=== PATIENT | female | born 1955 | race Caucasian/White ===

== ENCOUNTER 2022-04-14 07:48 | Observation (INO) | payer MEDICARE, OTHER ==
[2022-04-14] MEDS ORDERED: DUONEB 0.5-3 MG/3 ml Neb IH ONE ×2 (08:24→08:27)
[2022-04-14] MEDS ORDERED: solu-MEDROL 125 MG, Sterile H2O 10 ml 2 ML IV ONE ×2 (08:24)
[2022-04-14] MEDS ORDERED: solu-MEDROL ONE (08:38)
[2022-04-14] MEDS ORDERED: Sterile H2O 10 ml IJ ONE (08:38)
[2022-04-14 08:46] LABS: Absolute Neutrophil Ct (ANC) 6.62 x10^3/uL (1.4-6.9); BASOPHIL % 0.2 % (0.0-0.4); Basophil (Absolute #) 0.02 x10^3/uL (0-0.4); Eosinophil % 0.8 % (0.00-5.0); Eosinophil (Absolute #) 0.08 x10^3/uL (0-0.5); Hematocrit 42.7 % (35-47); Hemoglobin 14.2 g/dL (12.0-16.0); IMMATURE GRAN # 0.03 x10^3u/L (0.00-0.03); IMMATURE GRAN % 0.3 % (0.00-0.4); Lymphocyte (Absolute #) 2.04 x10^3/uL (1.0-4.6); Lymphocytes % 20.6 % (24.0-44.0); Mean Cell Volume 92.8 fL (78-100); Mean Corpuscular Hemoglobin 30.9 pg (26-32); Mean Corpuscular Hgb Concent. 33.3 g/dL (32-36); Mean Platelet Volume 10.7 fL (7.5-11.0); Monocyte (Absolute #) 1.12 x10^3/uL (0.0-1.3); Monocytes % 11.3 % (0.0-12.0); Neutrophil % 66.8 % (36.0-66.0); Platelet Count 275 x10^3/uL (150-450); Red Cell Distribution Width 12.8 % (11.5-14.0); White Blood Count 9.9 x10^3/uL (4.0-10.5)
[2022-04-14 09:09] LABS: ALBUMIN 4.2 g/dL (3.5-5.0); ALKALINE PHOSPHATASE 90 U/L (38-126); ANION GAP 12.3 MEQ/L (5-15); BLOOD UREA NITROGEN 8 mg/dL (7-17); CHLORIDE 101 mmol/L (98-107); Calcium 9.2 mg/dL (8.4-10.2); Carbon Dioxide 26 mmol/L (22-30); Creatinine 1 0.55 mg/dL (0.52-1.04); EST GLOMERULAR FILTRATION RATE > 60.0 ML/MIN; Glucose 144 mg/dL (74-106); NT PRO BNP 1940 pg/mL (0-900); Potassium 4.1 mmol/L (3.5-5.1); SGOT/AST 22 U/L (14-36); SGPT/ALT 18 U/L (0-35); SODIUM 135 mmol/L (137-145); Total Protein 7.5 g/dL (6.3-8.2)
--- NOTE | 2022-04-14 09:09 | ERPHSYRPT ---
- History of Present Illness Time Seen by Provider: 04/14/22 09:09 Historian: patient Exam Limitations: no limitations Patient Subjective Stated Complaint: pt here for chest pain under left breast since 0400 this morning, she states hurts worse to take a deep breath, has had a cough for 2 weeks now, no fever today Triage Nursing Assessment: pt alert, resp easy, skin w/d/p. holding chest when coughs, chest clear Physician History: Patient is 66-year-old female presents emergency department for evaluation of chest pain. Chest pain started approximately 4:00 this morning. Pain described as an ache that is located at the left lower aspect of her chest. Pain worse with deep inspiration. Pain improves with rest. Patient denies shortness of breath. Patient states she has been experiencing URI symptoms for approximately 2 weeks. Patient has been coughing. Patient observed that coughing reproduces her pain at her left lower chest. Cough is productive of a clear sputum. No associated fever. No nausea vomiting or diaphoresis. No rash. Patient states he is otherwise healthy. Patient is a known smoker. No formal diagnosis of COPD. On exam patient has noticeable URI symptoms. Nasal congestion and rhi norrhea. Wheezing observed in all lung [place]. No respiratory distress. Family at bedside. She voices no other complaints or concerns at this time. Portions of this note were created with voice recognition technology. There may be grammatical, spelling, punctuation or sound alike errors Timing/Duration: today Activities at Onset: none Quality: aching Location: other (Left lower chest.) Chest Pain Radiation: no radiation Severity of Pain-Max: moderate Severity of Pain-Current: mild Modifying Factors: Improves With: other (Deep breath and coughing worsen chest pain.) Associated Symptoms: cough, hurts to breathe, No shortness of breath, No fever, No syncope, No dizziness, No edema Prior Chest Pain/Cardiac Workup: no prior chest pain Nitro Today/Relief: no nitro taken today Aspirin Treatment Today: no aspirin today Allergies/Adverse Reactions: tetracycline Allergy (Verified 04/14/22 07:54) Home Medications: Escitalopram Oxalate [Lexapro] 10 mg PO DAILY 04/14/22 [History] Lorazepam 1 mg [Ativan 1 MG] 1 mg PO DAILY 04/14/22 [History] Hx Tetanus, Diphtheria Vaccination/Date Given: No Hx Influenza Vaccination/Date Given: No Hx Pneumococcal Vaccination/Date Given: No Immunizations Up to Date: Yes Travel Risk - International Travel Have you traveled outside of the country in past 3 weeks: No - Coronavirus Screening Are you exhibiting any of the following symptoms?: No Close contact with a COVID-19 positive Pt in past 14-21 Days: No - Vaccine Status Have you recieved a Covid-19 vaccination: Yes Skin Piler: Trufa - Vaccination Dates Date of 2cond Vaccination (if applicable): 2020 - Review of Systems Constitutional: No Symptoms, No Fever, No Chills Eyes: No Symptoms Ears, Nose, & Throat: No Symptoms Respiratory: No Symptoms, No Cough, No Dyspnea Cardiac: No Symptoms, No Chest Pain, No Edema, No Syncope Abdominal/Gastrointestinal: No Symptoms, No Abdominal Pain, No Nausea, No Vomiting, No Diarrhea Genitourinary Symptoms: No Symptoms, No Dysuria Musculoskeletal: No Symptoms, No Back Pain, No Neck Pain Skin: No Symptoms, No Rash Neurological: No Symptoms, No Dizziness, No Focal Weakness, No Sensory Changes Psychological: No Symptoms Endocrine: No Symptoms Hematologic/Lymphatic: No Symptoms Immunological/Allergic: No Symptoms All Other Systems: Reviewed and Negative - Past Medical History Psycho-Social History: Anxiety, Depression - Past Surgical History Past Surgical History: Yes Gastrointestinal: Appendectomy - Social History Smoking Status: Current every day smoker Exposure to second hand smoke: Yes Drug Use: marijuana Patient Lives Alone: Yes - Nursing Vital Signs Nursing Vital Signs: Initial Vital Signs Temperature 98.7 F 04/14/22 07:56 Pulse Rate 114 H 04/14/22 07:56 Respiratory Rate 18 04/14/22 07:56 Blood Pressure 139/87 04/14/22 07:56 O2 Sat by Pulse Oximetry 94 L 04/14/22 07:56 Pain Scale Pain Intensity 4 - Physical Exam General Appearance: no apparent distress, alert Eye Exam: PERRL/EOMI, eyes nml inspection, No scleral icterus Ears, Nose, Throat Exam: normal ENT inspection, TMs normal, pharynx normal, moist mucous membranes, other (Nasal congestion/rhinorrhea) Neck Exam: normal inspection, non-tender, supple, full range of motion Respiratory Exam: normal breath sounds, airway intact, wheezing, other (Hypoxia), No respiratory distress Cardiovascular Exam: normal heart sounds, normal peripheral pulses, tachycardia, capillary refill <2 sec, other (Tachycardia), No murmur Gastrointestinal/Abdomen Exam: soft, normal bowel sounds, No tenderness, No mass Back Exam: normal inspection, normal range of motion, No CVA tenderness, No vertebral tenderness Extremity Exam: normal inspection, normal range of motion Neurologic Exam: alert, oriented x 3, cooperative, normal mood/affect, sensation nml, No motor deficits Skin Exam: normal color, warm, dry SpO2 Interpretation: normal SpO2: 90 O2 Delivery: Room Air - Course Nursing assessment & vital signs reviewed: Yes EKG Interpreted by Me: RATE, Sinus Tach, NORMAL AXIS, NORMAL INTERVALS - CT Exams Chest CT Interpretation: Tele-radiologist Report (Negative for pulmonary embolus. Lingula and left lower lobe airspace disease. Pulmonary emphysema) Ordered Tests: Active Orders 24 hr Category Date Time Status Well Drill Operator STAT Care 04/14/22 08:13 Active EKG-ER Only STAT Care 04/14/22 08:13 Active IV Insertion STAT Care 04/14/22 08:13 Active Pulse Oximetry (ED) STAT Care 04/14/22 08:13 Active CHEST WITH CONTRAST [CT] Stat Exams 04/14/22 09:41 Completed BLOOD CULTURE Stat Lab 04/14/22 08:34 Received CBC W DIFF Stat Lab 04/14/22 08:34 Completed CMP Stat Lab 04/14/22 08:30 Completed D-DIMER QUANTITATIVE Stat Lab 04/14/22 08:30 Completed NT PRO BNP Stat Lab 04/14/22 08:30 Completed TROPONIN Q4H Lab 04/14/22 08:15 Completed TROPONIN Q4H Lab 04/14/22 08:34 Received TROPONIN Q4H Lab 04/14/22 16:15 Ordered Respiratory Therapy Assessment DAILY RT 04/14/22 08:45 Active Medication Summary Discontinued Medications Generic Name Dose Route Start Last Admin Trade Name Freq PRN Reason Stop Dose Admin Albuterol/Ipratropium 3 ml 04/14/22 08:24 04/14/22 08:35 Ipratropium/Albuterol Sulfate 3 Ml Ampul.Neb IH 04/14/22 08:25 3 ml STAT ONE Administration Albuterol/Ipratropium Confirm 04/14/22 08:27 Ipratropium/Albuterol Sulfate 3 Ml Ampul.Neb Administered 04/14/22 08:28 Dose 3 ml IH .STK-MED ONE Methylprednisolone Sodium 0 mg 04/14/22 08:24 04/14/22 08:43 Succinate 125 mg/ Sterile IV 04/14/22 08:25 125 mg Water 2 ml STAT ONE Administration Azithromycin 500 mg in 250 mls @ 250 mls/hr 04/14/22 11:53 04/14/22 13:56 Zithromax 500 Mg/ 250 Ml Nacl Premix IV 04/14/22 12:52 250 mls/hr STAT STA 250 mls/hr Administration Ceftriaxone Sodium/Dextrose 2 g in 50 mls @ 100 mls/hr 04/14/22 11:53 04/14/22 13:22 Rocephin 2 Gm-D5w 50ml Bag IV 04/14/22 12:22 100 mls/hr STAT STA 100 mls/hr Administration Ceftriaxone Sodium/Dextrose Confirm 04/14/22 13:22 Rocephin 2 Gm-D5w 50ml Bag Administered 04/14/22 13:23 Dose 2 g in 50 mls @ ud IV .STK-MED ONE Methylprednisolone Sodium Succinate Confirm 04/14/22 08:38 Methylprednis Sod Succ 125 Mg/2 Ml Vial Administered 04/14/22 08:39 Dose 125 mg .ROUTE .STK-MED ONE Sterile Water Confirm 04/14/22 08:38 Water For Injection,Sterile 10 Ml Vial Administered 04/14/22 08:39 Dose 10 ml IJ .STK-MED ONE Lab/Rad Data: Laboratory Result Diagrams 04/14/22 08:34 04/14/22 08:30 Laboratory Results 04/14/22 04/14/22 04/14/22 Range/Units Unknown 08:34 08:30 WBC 9.9 (4.0-10.5) x10^3/uL RBC 4.60 (4.1-5.4) x10^6/uL Hgb 14.2 (12.0-16.0) g/dL Hct 42.7 (35-47) % MCV 92.8 (78-100) fL MCH 30.9 (26-32) pg MCHC 33.3 (32-36) g/dL RDW 12.8 (11.5-14.0) % Plt Count 275 (150-450) x10^3/uL MPV 10.7 (7.5-11.0) fL Gran % 66.8 H (36.0-66.0) % Immature Gran % (Auto) 0.3 (0.00-0.4) % Nucleat RBC Rel Count 0.0 (0.00-0.1) % Eos # (Auto) 0.08 (0-0.5) x10^3/uL Immature Gran # (Auto) 0.03 (0.00-0.03) x10^3u/L Absolute Lymphs (auto) 2.04 (1.0-4.6) x10^3/uL Absolute Monos (auto) 1.12 (0.0-1.3) x10^3/uL Absolute Nucleated RBC 0.00 (0.00-0.01) x10^3u/L Lymphocytes % 20.6 L (24.0-44.0) % Monocytes % 11.3 (0.0-12.0) % Eosinophils % 0.8 (0.00-5.0) % Basophils % 0.2 (0.0-0.4) % Absolute Granulocytes 6.62 (1.4-6.9) x10^3/uL Basophils # 0.02 (0-0.4) x10^3/uL D-Dimer 0.67 H* (0.0-0.50) mg/L Sodium (137-145) mmol/L Potassium (3.5-5.1) mmol/L Chloride (98-107) mmol/L Carbon Dioxide (22-30) mmol/L Anion Gap (5-15) MEQ/L BUN (7-17) mg/dL Creatinine (0.52-1.04) mg/dL Estimated GFR ML/MIN Glucose (74-106) mg/dL Calcium (8.4-10.2) mg/dL Total Bilirubin (0.2-1.3) mg/dL AST (14-36) U/L ALT (0-35) U/L Alkaline Phosphatase (38-126) U/L Troponin I (0.000-0.034) ng/mL NT-Pro-B Natriuret Pep (0-900) pg/mL Serum Total Protein (6.3-8.2) g/dL Albumin (3.5-5.0) g/dL Influenza Type A Ag NEGATIVE (NEGATIVE) Influenza Type B Ag NEGATIVE (NEGATIVE) RSV (PCR) NEGATIVE (Negative) SARS-CoV-2 (PCR) NEGATIVE (NEGATIVE) 04/14/22 04/14/22 Range/Units 08:30 08:15 WBC (4.0-10.5) x10^3/uL RBC (4.1-5.4) x10^6/uL Hgb (12.0-16.0) g/dL Hct (35-47) % MCV (78-100) fL MCH (26-32) pg MCHC (32-36) g/dL RDW (11.5-14.0) % Plt Count (150-450) x10^3/uL MPV (7.5-11.0) fL Gran % (36.0-66.0) % Immature Gran % (Auto) (0.00-0.4) % Nucleat RBC Rel Count (0.00-0.1) % Eos # (Auto) (0-0.5) x10^3/uL Immature Gran # (Auto) (0.00-0.03) x10^3u/L Absolute Lymphs (auto) (1.0-4.6) x10^3/uL Absolute Monos (auto) (0.0-1.3) x10^3/uL Absolute Nucleated RBC (0.00-0.01) x10^3u/L Lymphocytes % (24.0-44.0) % Monocytes % (0.0-12.0) % Eosinophils % (0.00-5.0) % Basophils % (0.0-0.4) % Absolute Granulocytes (1.4-6.9) x10^3/uL Basophils # (0-0.4) x10^3/uL D-Dimer (0.0-0.50) mg/L Sodium 135 L (137-145) mmol/L Potassium 4.1 (3.5-5.1) mmol/L Chloride 101 (98-107) mmol/L Carbon Dioxide 26 (22-30) mmol/L Anion Gap 12.3 (5-15) MEQ/L BUN 8 (7-17) mg/dL Creatinine 0.55 (0.52-1.04) mg/dL Estimated GFR > 60.0 ML/MIN Glucose 144 H (74-106) mg/dL Calcium 9.2 (8.4-10.2) mg/dL Total Bilirubin 0.80 (0.2-1.3) mg/dL AST 22 (14-36) U/L ALT 18 (0-35) U/L Alkaline Phosphatase 90 (38-126) U/L Troponin I 0.017 (0.000-0.034) ng/mL NT-Pro-B Natriuret Pep 1940 H (0-900) pg/mL Serum Total Protein 7.5 (6.3-8.2) g/dL Albumin 4.2 (3.5-5.0) g/dL Influenza Type A Ag (NEGATIVE) Influenza Type B Ag (NEGATIVE) RSV (PCR) (Negative) SARS-CoV-2 (PCR) (NEGATIVE) - Progress Progress: improved Air Movement: good Progress Note: Patient is a 66-year-old female presents emergency department for evaluation of shortness of breath and chest pain. Physical exam reveals some tenderness to the left lower chest. Patient symptoms were acute and progressive in onset. Patient's complaints are moderate. Patient is a smoker with no significant contributing comorbidities otherwise. Test ordered includes CT chest blood cultures CBC, C MP, COVID test. D-dimer, BNP, troponin. D-dimer positive. CT chest negative for PE however shows pneumonia. URI observed on physical exam. Patient with resting tachycardia and hypoxia. Oxygen nasal cannula applied. Physical exam reveals wheezing and cough. Laboratory work-up reveals some hyponatremia elevated glucose of 144 and mildly elevated BNP at 1940. Patient received nebulizer treatment. Patient received antibiotics Rocephin and azithromycin. Patient received prednisolone as well. Patient reassessed. She feels much better. Symptoms improved but not resolved. Patient will be admitted for further evaluation and treatment. Discussed with Dr. Mayer who accepts admission to observation. Plan of care discussed with patient. She agrees to admission is on [facility] for further evaluation and treatment. The results of the testing were used for medical decision making. Level of service provided was moderate. Complexity of problem is moderate. Complexity of data reviewed and analyzed is moderate. Risk of complication and/or risk of morbidity/mortality of patient management is moderate. No critical care time. Patient served as an independent historian. Patient is a full code. Include the level of EM service provided min/straightforward, low, moderate, high, critical care Time spent for admission was approximately 10 to 15 minutes. Portions of this note were created with voice recognition technology. There may be grammatical, spelling, punctuation or sound alike errors 04/14/22 14:05 Blood Culture(s) Obtained: Yes Antibiotics given: Yes Discussed with : Srini Will see patient in: hospital (observation) Counseled pt/family regarding: lab results, diagnosis, rad results - Departure Departure Disposition: Observation Clinical Impression: Hypoxia, Tachycardia, URI (upper respiratory infection), Chest pain, Wheezing, Cough, Pneumonia, Emphysema lung Condition: Stable Critical Care Time: No Referrals: MAURI CHRISTOPHER DO [Primary Care Provider] - Follow up/PCP as directed Instructions: Chronic Obstructive Pulmonary Disease
[2022-04-14 10:05] LABS: INFLUENZA A NEGATIVE (NEGATIVE); INFLUENZA B NEGATIVE (NEGATIVE); RESPIRATORY SYNCTIAL VIRUS NEGATIVE (Negative); SARS-CoV-2 Xpert Express NEGATIVE (NEGATIVE)
--- NOTE | 2022-04-14 10:58 | XRAY ---
Indication: Chest pain and cough. Elevated d-dimer. Multiple contiguous axial images obtained through the chest using 80 cc Isovue 370 contrast and PE protocol. Comparison: None Good opacification of the pulmonary arteries to include the lobar and segmental branches. No pulmonary embolus. Heart is not enlarged. Aorta is normal in course and caliber. No pathologic mediastinal/hilar lymphadenopathy. Lungs demonstrates consolidating lingula and lesser degree patchy left lower lobe airspace disease. Remaining lungs moderate diffuse pulmonary emphysema. Bony thorax intact with mild degenerative changes throughout the spine. Limited upper abdomen unremarkable. Impression: 1. Negative pulmonary embolus. 2. Lingula and left lower lobe airspace disease. 3. Pulmonary emphysema.
[2022-04-14] MEDS ORDERED: ROCEPHIN 2 Gm-D5w 50ML BAG** 2 G/50 ML IVPB IV STA (11:53)
[2022-04-14] MEDS ORDERED: Zithromax 500 MG/ 250 ML NaCl Premix 500 MG/250 ML IVPB IV STA (11:53)
[2022-04-14] MEDS ORDERED: ROCEPHIN 2 Gm-D5w 50ML BAG** 2 G/50 ML IVPB IV ONE (13:22)
[2022-04-14] MEDS ORDERED: Zithromax 500 MG/ 250 ML NaCl Premix 500 MG/250 ML IVPB IV ONE (13:54)
[2022-04-14] MEDS ORDERED: MOTRIN 200 MG PO PRN (17:20)
[2022-04-14] MEDS ORDERED: Ativan 0.5 MG PO PRN (17:20)
[2022-04-14] MEDS ORDERED: TYLENOL EXTRA STRENGTH 500 MG PO PRN (17:20)
[2022-04-14] MEDS ORDERED: MOTRIN 400 MG PO PRN (17:24)
--- NOTE | 2022-04-14 18:12 | PCM.HP ---
History of Present Illness - Chief Complaint Chief Complaint: Pneumonia, COPD exacerbation History of Present Illness: is a 66 year old female.presents emergency department for evaluation of chest pain. Chest pain started approximately 4:00 this morning. Pain described as an ache that is located at the left lower aspect of her chest. Pain worse with deep inspiration. Pain improves with rest. Patient denies shortness of breath. Patient states she has been experiencing URI symptoms for approximately 2 weeks. Patient has been coughing. Patient observed that coughing reproduces her pain at her left lower chest. Cough is productive of a clear sputum. No associated fever. No nausea vomiting or diaphoresis. No rash. Patient states he is otherwise healthy. Patient is a known smoker. No formal diagnosis of COPD. On exam patient has noticeable URI symptoms. Nasal c ongestion and rhinorrhea. Wheezing observed in all lung arroyo. No respiratory distress. Family at bedside. She voices no other complaints or concerns at this time. - Review of Systems Constitutional: No Fever, No Chills Eyes: No Symptoms Ears, Nose, & Throat: No Symptoms Respiratory: Cough, Orthopnea, Short Of Breath, Wheezing Cardiac: Chest Pain, No Edema, No Syncope Abdominal/Gastrointestinal: No Abdominal Pain, No Nausea, No Vomiting, No Diarrhea Genitourinary Symptoms: No Dysuria Musculoskeletal: No Back Pain, No Neck Pain Skin: No Rash Neurological: No Dizziness, No Focal Weakness, No Sensory Changes Psychological: No Symptoms Endocrine: No Symptoms Hematologic/Lymphatic: No Symptoms Immunological/Allergic: No Symptoms Medications & Allergies Home Medications: Home Medication List Acetaminophen 500 mg [Tylenol Extra Strength 500 mg] 1,000 mg PO Q4HPRN PRN 04/14/22 [History Confirmed 04/14/22] Escitalopram Oxalate [Lexapro] 10 mg PO HS 04/14/22 [History Confirmed 04/14/22] Ibuprofen 200 mg [Motrin 200 mg] 400 mg PO Q6HPRN PRN 04/14/22 [History Confirmed 04/14/22] Lorazepam 0.5 mg [Ativan 0.5 MG] 0.5 mg PO DAILY PRN PRN 04/14/22 [History Confirmed 04/14/22] Lorazepam 1 mg [Ativan 1 MG] 1.5 mg PO HS 04/14/22 [History Confirmed 04/14/22] Allergies/Adverse Reactions: Allergies Allergy/AdvReac Type Severity Reaction Status Date / Time tetracycline Allergy Verified 04/14/22 07:54 - Past Medical History Past Medical History: Yes Neurological History: Migraines ENT History: No Pertinent History Respiratory History: Asthma, COPD Pyscho-Social History: Anxiety, Depression Comment: Vestibular migraines - Past Surgical History Past Surgical History: Yes GI Surgical History: Appendectomy - Social History Smoking Status: Current every day smoker Exposure to second hand smoke: Yes Alcohol: Rarely Drug Use: marijuana - Physical Exam Vital Signs: Vital Signs - 24 hr Temp Pulse Resp BP Pulse Ox 04/14/22 16:43 98.0 F 97 H 18 109/69 91 L 04/14/22 16:00 98.0 F 97 H 18 109/69 91 L 04/14/22 15:16 78 22 100/65 90 L 04/14/22 14:09 90 L 04/14/22 13:11 96 H 23 110/89 90 L 04/14/22 12:36 96 H 21 126/77 90 L 04/14/22 11:03 104 H 18 116/81 92 L 04/14/22 10:21 100 H 21 117/86 97 04/14/22 08:35 106 H 28 H 90 L 04/14/22 07:56 98.7 F 114 H 18 139/87 94 L General Appearance: no apparent distress, alert Neurologic Exam: alert, oriented x 3, cooperative, normal mood/affect, nml cerebellar function, nml station & gait, sensation nml, No motor deficits Eye Exam: PERRL/EOMI, eyes nml inspection Ears, Nose, Throat Exam: normal ENT inspection, TMs normal, pharynx normal, moist mucous membranes Neck Exam: normal inspection, non-tender, supple, full range of motion Respiratory Exam: diminished breath sounds, crackles/rales, rhonchi, wheezing, No respiratory distress Cardiovascular Exam: regular rate/rhythm, normal heart sounds, normal peripheral pulses Gastrointestinal/Abdomen Exam: soft, normal bowel sounds, No tenderness, No mass Back Exam: normal inspection, normal range of motion, No CVA tenderness, No vertebral tenderness Extremity Exam: normal inspection, normal range of motion, pelvis stable Skin Exam: normal color, warm, dry, No rash Lymphatic Exam: No adenopathy Results - Labs Lab/Micro Results: Lab Results-Last 24 Hours 04/14/22 04/14/22 04/14/22 Range/Units 08:15 08:30 08:30 WBC (4.0-10.5) x10^3/uL RBC (4.1-5.4) x10^6/uL Hgb (12.0-16.0) g/dL Hct (35-47) % MCV (78-100) fL MCH (26-32) pg MCHC (32-36) g/dL RDW (11.5-14.0) % Plt Count (150-450) x10^3/uL MPV (7.5-11.0) fL Gran % (36.0-66.0) % Immature Gran % (Auto) (0.00-0.4) % Nucleat RBC Rel Count (0.00-0.1) % Eos # (Auto) (0-0.5) x10^3/uL Immature Gran # (Auto) (0.00-0.03) x10^3u/L Absolute Lymphs (auto) (1.0-4.6) x10^3/uL Absolute Monos (auto) (0.0-1.3) x10^3/uL Absolute Nucleated RBC (0.00-0.01) x10^3u/L Lymphocytes % (24.0-44.0) % Monocytes % (0.0-12.0) % Eosinophils % (0.00-5.0) % Basophils % (0.0-0.4) % Absolute Granulocytes (1.4-6.9) x10^3/uL Basophils # (0-0.4) x10^3/uL D-Dimer 0.67 H* (0.0-0.50) mg/L Sodium 135 L (137-145) mmol/L Potassium 4.1 (3.5-5.1) mmol/L Chloride 101 (98-107) mmol/L Carbon Dioxide 26 (22-30) mmol/L Anion Gap 12.3 (5-15) MEQ/L BUN 8 (7-17) mg/dL Creatinine 0.55 (0.52-1.04) mg/dL Estimated GFR > 60.0 ML/MIN Glucose 144 H (74-106) mg/dL Calcium 9.2 (8.4-10.2) mg/dL Total Bilirubin 0.80 (0.2-1.3) mg/dL AST 22 (14-36) U/L ALT 18 (0-35) U/L Alkaline Phosphatase 90 (38-126) U/L Troponin I 0.017 (0.000-0.034) ng/mL NT-Pro-B Natriuret Pep 1940 H (0-900) pg/mL Serum Total Protein 7.5 (6.3-8.2) g/dL Albumin 4.2 (3.5-5.0) g/dL Influenza Type A Ag (NEGATIVE) Influenza Type B Ag (NEGATIVE) RSV (PCR) (Negative) SARS-CoV-2 (PCR) (NEGATIVE) 04/14/22 04/14/22 04/14/22 Range/Units 08:34 16:38 Unknown WBC 9.9 (4.0-10.5) x10^3/uL RBC 4.60 (4.1-5.4) x10^6/uL Hgb 14.2 (12.0-16.0) g/dL Hct 42.7 (35-47) % MCV 92.8 (78-100) fL MCH 30.9 (26-32) pg MCHC 33.3 (32-36) g/dL RDW 12.8 (11.5-14.0) % Plt Count 275 (150-450) x10^3/uL MPV 10.7 (7.5-11.0) fL Gran % 66.8 H (36.0-66.0) % Immature Gran % (Auto) 0.3 (0.00-0.4) % Nucleat RBC Rel Count 0.0 (0.00-0.1) % Eos # (Auto) 0.08 (0-0.5) x10^3/uL Immature Gran # (Auto) 0.03 (0.00-0.03) x10^3u/L Absolute Lymphs (auto) 2.04 (1.0-4.6) x10^3/uL Absolute Monos (auto) 1.12 (0.0-1.3) x10^3/uL Absolute Nucleated RBC 0.00 (0.00-0.01) x10^3u/L Lymphocytes % 20.6 L (24.0-44.0) % Monocytes % 11.3 (0.0-12.0) % Eosinophils % 0.8 (0.00-5.0) % Basophils % 0.2 (0.0-0.4) % Absolute Granulocytes 6.62 (1.4-6.9) x10^3/uL Basophils # 0.02 (0-0.4) x10^3/uL D-Dimer (0.0-0.50) mg/L Sodium (137-145) mmol/L Potassium (3.5-5.1) mmol/L Chloride (98-107) mmol/L Carbon Dioxide (22-30) mmol/L Anion Gap (5-15) MEQ/L BUN (7-17) mg/dL Creatinine (0.52-1.04) mg/dL Estimated GFR ML/MIN Glucose (74-106) mg/dL Calcium (8.4-10.2) mg/dL Total Bilirubin (0.2-1.3) mg/dL AST (14-36) U/L ALT (0-35) U/L Alkaline Phosphatase (38-126) U/L Troponin I < 0.012 (0.000-0.034) ng/mL NT-Pro-B Natriuret Pep (0-900) pg/mL Serum Total Protein (6.3-8.2) g/dL Albumin (3.5-5.0) g/dL Influenza Type A Ag NEGATIVE (NEGATIVE) Influenza Type B Ag NEGATIVE (NEGATIVE) RSV (PCR) NEGATIVE (Negative) SARS-CoV-2 (PCR) NEGATIVE (NEGATIVE) - Radiology Impressions Radiology Exams & Impressions: Radiology Procedures Category Date Time Status CHEST WITH CONTRAST [CT] Stat Exams 04/14/22 09:[address]/CHEST WITH CONTRAST Indication: Chest pain and cough. Elevated d-dimer. Multiple contiguous axial images obtained through the chest using 80 cc Isovue 370 contrast and PE protocol. Comparison: None Good opacification of the pulmonary arteries to include the lobar and segmental branches. No pulmonary embolus. Heart is not enlarged. Aorta is normal in course and caliber. No pathologic mediastinal/hilar lymphadenopathy. Lungs demonstrates consolidating lingula and lesser degree patchy left lower lobe airspace disease. Remaining lungs moderate diffuse pulmonary emphysema. Bony thorax intact with mild degenerative changes throughout the spine. Limited upper abdomen unremarkable. Impression: 1. Negative pulmonary embolus. 2. Lingula and left lower lobe airspace disease. 3. Pulmonary emphysema. - Other Procedures and Tests Respiratory Therapy 04/14/22 08:45 Respiratory Therapy Assessment DAILY Assessment/Plan (1) Pneumonia Current Visit: Yes Status: Acute Qualifiers: Pneumonia type: due to Pneumococcus Laterality: left Lung location: lower lobe of lung Qualified Code(s): J13 - Pneumonia due to Streptococcus pneumoniae Assessment & Plan: Chief Complaint Diagnosis Pneumonia, COPD exacerbation Allergies Allergy/AdvReac Type Severity Reaction Status Date / Time tetracycline Allergy Verified 04/14/22 07:54 Vital Signs (Last 24 hours) Temp Pulse Resp BP Pulse Ox 04/14/22 17:40 98.0 F 97 H 18 109/69 91 L 04/14/22 16:43 98.0 F 97 H 18 109/69 91 L 04/14/22 16:00 98.0 F 97 H 18 109/69 91 L 04/14/22 15:16 78 22 100/65 90 L 04/14/22 14:09 90 L 04/14/22 13:11 96 H 23 110/89 90 L 04/14/22 12:36 96 H 21 126/77 90 L 04/14/22 11:03 104 H 18 116/81 92 L 04/14/22 10:21 100 H 21 117/86 97 04/14/22 08:35 106 H 28 H 90 L 04/14/22 07:56 98.7 F 114 H 18 139/87 94 L Home Medications Medication Instructions Recorded Confirmed Last Taken Type Acetaminophen 500 mg [Tylenol 1,000 mg PO Q4HPRN PRN 04/14/22 04/14/22 Un known History Extra Strength 500 mg] Escitalopram Oxalate [Lexapro] 10 mg PO HS 04/14/22 04/14/22 04/13/22 History Ibuprofen 200 mg [Motrin 200 400 mg PO Q6HPRN PRN 04/14/22 04/14/22 Unknown History mg] Lorazepam 0.5 mg [Ativan 0.5 0.5 mg PO DAILY PRN PRN 04/14/22 04/14/22 Unknown History MG] Lorazepam 1 mg [Ativan 1 MG] 1.5 mg PO HS 04/14/22 04/14/22 04/13/22 History Current Medications Generic Name Dose Route Start Last Admin Trade Name Freq PRN Reason Stop Dose Admin Acetaminophen 1,000 mg 04/14/22 17:20 Acetaminophen 500 Mg Tablet PO 05/14/22 17:19 Q4HPRN PRN PAIN AND/OR FEVER Albuterol/Ipratropium 3 ml 04/14/22 16:52 Ipratropium/Albuterol Sulfate 3 Ml Ampul.Neb 05/14/22 16:51 Q4HRT [facility] Methylprednisolone Sodium 0 mg 04/14/22 18:00 Succinate 60 mg/ Sterile Water IV 05/14/22 17:59 2 ml Q6HT [facility] Escitalopram Oxalate 10 mg 04/14/22 22:00 Escitalopram Oxalate 10 Mg Tablet PO 05/14/22 21:59 HS [facility] Ceftriaxone Sodium/Dextrose 1 g in 50 mls @ 100 mls/hr 04/15/22 10:00 Rocephin 1 Gm-D5w 50 Ml Bag IV 04/18/22 09:59 Q24H10 [facility] Azithromycin 500 mg in 250 mls @ 250 mls/hr 04/15/22 10:00 Zithromax 500 Mg/ 250 Ml Nacl Premix IV 05/15/22 09:59 Q24H10 [facility] Ibuprofen 400 mg 04/14/22 17:24 Ibuprofen 400 Mg Tablet PO 05/14/22 17:23 Q6HPRN PRN PAIN AND/OR FEVER Lorazepam 1.5 mg 04/14/22 22:00 Lorazepam 1 Mg Tablet PO 05/14/22 21:59 HS [facility] Lorazepam 0.5 mg 04/14/22 17:20 Lorazepam 0.5 Mg Tablet PO 05/14/22 17:19 BIDPRN PRN ANXIETY Discontinued Medications Generic Name Dose Route Start Last Admin Trade Name Freq PRN Reason Stop Dose Admin Albuterol/Ipratropium 3 ml 04/14/22 08:24 04/14/22 08:35 Ipratropium/Albuterol Sulfate 3 Ml Ampul.Neb 04/14/22 08:25 3 ml STAT ONE Administration Albuterol/Ipratropium Confirm 04/14/22 08:27 Ipratropium/Albuterol Sulfate 3 Ml Ampul.Neb Administered 04/14/22 08:28 Dose 3 ml IH .STK-MED ONE Methylprednisolone Sodium 0 mg 04/14/22 08:24 04/14/22 08:43 Succinate 125 mg/ Sterile IV 04/14/22 08:25 125 mg Water 2 ml STAT ONE Administration Azithromycin 500 mg in 250 mls @ 250 mls/hr 04/14/22 11:53 04/14/22 14:57 Zithromax 500 Mg/ 250 Ml Nacl Premix IV 04/14/22 12:52 Infused STAT STA Infusion Ceftriaxone Sodium/Dextrose 2 g in 50 mls @ 100 mls/hr 04/14/22 11:53 04/14/22 14:57 Rocephin 2 Gm-D5w 50ml Bag IV 04/14/22 12:22 Infused STAT STA Infusion Ceftriaxone Sodium/Dextrose Confirm 04/14/22 13:22 Rocephin 2 Gm-D5w 50ml Bag Administered 04/14/22 13:23 Dose 2 g in 50 mls @ ud IV .STK-MED ONE Azithromycin Confirm 04/14/22 13:54 Zithromax 500 Mg/ 250 Ml Nacl Premix Administered 04/14/22 13:55 Dose 500 mg in 250 mls @ ud IV .STK-MED ONE Methylprednisolone Sodium Succinate Confirm 04/14/22 08:38 Methylprednis Sod Succ 125 Mg/2 Ml Vial Administered 04/14/22 08:39 Dose 125 mg .ROUTE .STK-MED ONE Sterile Water Confirm 04/14/22 08:38 Water For Injection,Sterile 10 Ml Vial Administered 04/14/22 08:39 Dose 10 ml IJ .STK-MED ONE Intake & Output (Last 24 hours) 04/12/22 04/13/22 04/14/22 04/15/22 11:59 11:59 11:59 11:59 Intake Total 360 Balance 360 Weight 57.3 kg 53.2 kg Microbiology Results (Last 24 hours) 04/14/22 08:34 Blood Blood Culture Gram Stain - Pending 04/14/22 08:34 Blood Blood Culture - Pending 04/14/22 08:34 Blood Blood Culture Gram Stain - Pending 04/14/22 08:34 Blood Blood Culture - Pending Laboratory Results (Last 24 hours) 04/14/22 04/14/22 04/14/22 Unknown 16:38 08:34 WBC 9.9 RBC 4.60 Hgb 14.2 Hct 42.7 MCV 92.8 MCH 30.9 MCHC 33.3 RDW 12.8 Plt Count 275 MPV 10.7 Gran % 66.8 H Immature Gran % (Auto) 0.3 Nucleat RBC Rel Count 0.0 Eos # (Auto) 0.08 Immature Gran # (Auto) 0.03 Absolute Lymphs (auto) 2.04 Absolute Monos (auto) 1.12 Absolute Nucleated RBC 0.00 Lymphocytes % 20.6 L Monocytes % 11.3 Eosinophils % 0.8 Basophils % 0.2 Absolute Granulocytes 6.62 Basophils # 0.02 D-Dimer Sodium Potassium Chloride Carbon Dioxide Anion Gap BUN Creatinine Estimated GFR Glucose Calcium Total Bilirubin AST ALT Alkaline Phosphatase Troponin I < 0.012 NT-Pro-B Natriuret Pep Serum Total Protein Albumin Influenza Type A Ag NEGATIVE Influenza Type B Ag NEGATIVE RSV (PCR) NEGATIVE SARS-CoV-2 (PCR) NEGATIVE 04/14/22 04/14/22 04/14/22 08:30 08:30 08:15 WBC RBC Hgb Hct MCV MCH MCHC RDW Plt Count MPV Gran % Immature Gran % (Auto) Nucleat RBC Rel Count Eos # (Auto) Immature Gran # (Auto) Absolute Lymphs (auto) Absolute Monos (auto) Absolute Nucleated RBC Lymphocytes % Monocytes % Eosinophils % Basophils % Absolute Granulocytes Basophils # D-Dimer 0.67 H* Sodium 135 L Potassium 4.1 Chloride 101 Carbon Dioxide 26 Anion Gap 12.3 BUN 8 Creatinine 0.55 Estimated GFR > 60.0 Glucose 144 H Calcium 9.2 Total Bilirubin 0.80 AST 22 ALT 18 Alkaline Phosphatase 90 Troponin I 0.017 NT-Pro-B Natriuret Pep 1940 H Serum Total Protein 7.5 Albumin 4.2 Influenza Type A Ag Influenza Type B Ag RSV (PCR) SARS-CoV-2 (PCR) Orders (Last 24 hours) Category Date Time Status Bedrest ROUTINE Activity 04/14/22 16:52 Active Dairy Technician STAT Care 04/14/22 08:13 Completed Code Status Order ROUTINE Care 04/14/22 16:52 Active EKG-ER Only STAT Care 04/14/22 08:13 Completed IV Care Q6H Care 04/14/22 16:52 Active IV Insertion STAT Care 04/14/22 08:[address] in Observation ROUTINE Care 04/14/22 16:52 Active Pulse Oximetry (ED) STAT Care 04/14/22 08:13 Completed Krystal Maraino ROUTINE Care 04/14/22 16:52 Active Telemetry q4h Care 04/14/22 16:52 Active Weight,Daily 0600 Care 04/14/22 16:52 Active Ecological Technical Officer/Discharge Plan ROUTINE Cons 04/14/22 17:39 Active Ecological Technical Officer/Discharge Plan ROUTINE Cons 04/14/22 18:09 Active Clear Liquid Diet 04/14/22 Dinner Completed House Regular Diet Diet 04/14/22 Dinner Active CHEST WITH CONTRAST [CT] Stat Exams 04/14/22 09:41 Completed BLOOD CULTURE Stat Lab 04/14/22 08:34 Received CBC AM.LAB Lab 04/15/22 04:00 Ordered CBC W DIFF Stat Lab 04/14/22 08:34 Completed CMP AM.LAB Lab 04/15/22 04:00 Ordered CMP Stat Lab 04/14/22 08:30 Completed COVID/FLU/RSV Panel Stat Lab 04/14/22 Completed D-DIMER QUANTITATIVE Stat Lab 04/14/22 08:30 Completed NT PRO BNP Stat Lab 04/14/22 08:30 Completed TROPONIN Q4H Lab 04/14/22 08:15 Completed TROPONIN Q4H Lab 04/14/22 08:34 Received TROPONIN Q4H Lab 04/14/22 16:38 Completed Acetaminophen 500 mg [Tylenol Extra Strength 500 mg* Med 04/14/22 17:20 Active ] 1,000 mg PO Q4HPRN PRN Albuterol/Ipratropium 3ml Neb* [DUONEB 0.5-3 MG/3 ml Med 04/14/22 08:27 Discontinued Neb] 3 ml IH .STK-MED ONE Albuterol/Ipratropium 3ml Neb* [DUONEB 0.5-3 MG/3 ml Med 04/14/22 16:52 Active Neb] 3 ml IH Q4HRT Albuterol/Ipratropium 3ml Neb* [DUONEB 0.5-3 MG/3 ml Med 04/14/22 08:24 Discontinued Neb] 3 ml IH STAT ONE Azithromycin 500 mg/250 ml [Zithromax 500 MG/ 250 ML Med 04/15/22 10:00 Active NaCl Premix] 500 mg in 250 ml IV Q24H10 Azithromycin 500 mg/250 ml [Zithromax 500 MG/ 250 ML Med 04/14/22 11:53 Discontinued NaCl Premix] 500 mg in 250 ml IV STAT Azithromycin 500 mg/250 ml [Zithromax 500 MG/ 250 ML Med 04/14/22 13:54 Discontinued NaCl Premix] 500 mg in 250 ml IV UD Ceftriaxone 1 GM/50 ML PREMIX* [ROCEPHIN 1 Gm-D5w 50 ml Med 04/15/22 10:00 Active Bag] 1 g in 50 ml IV Q24H10 Ceftriaxone 2 GM/50 ML PREMIX* [ROCEPHIN 2 Gm-D5w 50ML Med 04/14/22 11:53 Discontinued BAG] 2 g in 50 ml IV STAT Ceftriaxone 2 GM/50 ML PREMIX* [ROCEPHIN 2 Gm-D5w 50ML Med 04/14/22 13:22 Discontinued BAG] 2 g in 50 ml IV UD Escitalopram Oxalate [Lexapro] Med 04/14/22 22:00 Active 10 mg PO HS Ibuprofen 400 mg [Motrin 400 mg] Med 04/14/22 17:24 Active 400 mg PO Q6HPRN PRN Lorazepam 0.5 mg [Ativan 0.5 MG] Med 04/14/22 17:20 Active 0.5 mg PO BIDPRN PRN Lorazepam 1 mg [Ativan 1 MG] Med 04/14/22 22:00 Active 1.5 mg PO HS Methylprednis Sod Succ 125 mg* [solu-MEDROL] Med 04/14/22 08:38 Discontinued 125 mg .ROUTE .STK-MED ONE Methylprednis Sod Succ 125 mg* [solu-MEDROL] 125 mg Med 04/14/22 08:24 Discontinued Water For Injection,Sterile [Sterile H2O 10 ml] 2 ml IV STAT Methylprednis Sod Succ 125 mg* [solu-MEDROL] 60 mg Med 04/14/22 18:00 Active Water For Injection,Sterile [Sterile H2O 10 ml] 2 ml IV Q6HT Water For Injection,Sterile [Sterile H2O 10 ml] Med 04/14/22 08:38 Discontinued 10 ml IJ .STK-MED ONE Pulse Oximetry CONTINUOUS RT 04/14/22 16:52 Active Respiratory Therapy Assessment DAILY RT 04/14/22 08:45 Active Smoking Cessation Education ONCE RT 04/14/22 18:09 Active Transfer Order Routine Transfer 04/14/22 Completed Code(s): J18.9 - PNEUMONIA, UNSPECIFIED ORGANISM (2) Chest pain Current Visit: Yes Status: Acute Qualifiers: Chest pain type: chest pain on breathing Qualified Code(s): R07.1 - Chest pain on breathing; R07.81 - Pleurodynia Code(s): R07.9 - CHEST PAIN, UNSPECIFIED (3) Hypoxia Current Visit: Yes Status: Acute Code(s): R09.02 - HYPOXEMIA
[2022-04-14] MEDS: DUONEB 0.5-3 MG/3 ml Neb IH SCH ×3 (18:34→23:18)
[2022-04-14] MEDS: solu-MEDROL 60 MG, Sterile H2O 10 ml 2 ML IV SCH ×2 (18:52)
[2022-04-14] MEDS ORDERED: Ativan 1 MG PO SCH (22:00)
[2022-04-14] MEDS: Lexapro PO SCH (23:58)
[2022-04-15] MEDS: solu-MEDROL 60 MG, Sterile H2O 10 ml 2 ML IV SCH ×12 (01:14→23:20)
[2022-04-15] MEDS: DUONEB 0.5-3 MG/3 ml Neb IH SCH ×2 (03:34→07:06)
--- NOTE | 2022-04-15 08:10 | PCM.NOTE ---
Date and Time: 04/15/22805 Subjective Assessment: still feels weak, short of breath - Review of Systems Constitutional: No Fever, No Chills Eyes: No Symptoms Ears, Nose, & Throat: No Symptoms Respiratory: Cough, Short Of Breath Cardiac: No Chest Pain, No Edema, No Syncope Abdominal/Gastrointestinal: No Abdominal Pain, No Nausea, No Vomiting, No Diarrhea Genitourinary Symptoms: No Dysuria Musculoskeletal: No Back Pain, No Neck Pain Skin: No Rash Neurological: No Dizziness, No Focal Weakness, No Sensory Changes Psychological: No Symptoms Endocrine: No Symptoms Hematologic/Lymphatic: No Symptoms Immunological/Allergic: No Symptoms Objective Exam General Appearance: no apparent distress, alert Neurologic Exam: alert, oriented x 3, cooperative, normal mood/affect, nml cerebellar function, sensation nml, No motor deficits Skin Exam: normal color, warm, dry Eye Exam: PERRL, EOMI, eyes nml inspection Ears, Nose, Throat Exam: normal ENT inspection, pharynx normal, moist mucous membranes Neck Exam: normal inspection, non-tender, supple, full range of motion Respiratory Exam: diminished breath sounds, crackles/rales, rhonchi, wheezing, No respiratory distress Cardiovascular Exam: regular rate/rhythm, normal heart sounds Gastrointestinal/Abdomen Exam: soft, No tenderness, No mass Extremity Exam: normal inspection, normal range of motion Back Exam: normal inspection, normal range of motion, No CVA tenderness, No vertebral tenderness Pelvic Exam: deferred Rectal Exam: deferred OBJECTIVE DATA Vital Signs: Vital Signs - 24 hr Temp Pulse Resp BP Pulse Ox 04/15/22 07:48 97.9 F 75 16 110/68 94 L 04/15/22 07:27 88 16 95 04/14/22 23:33 97.6 F 87 16 129/69 95 04/14/22 23:18 90 16 95 04/14/22 19:32 97.8 F 101 H 16 115/62 95 04/14/22 18:34 111 H 20 95 04/14/22 17:40 98.0 F 97 H 18 109/69 91 L 04/14/22 16:43 98.0 F 97 H 18 109/69 91 L 04/14/22 16:00 98.0 F 97 H 18 109/69 91 L 04/14/22 15:16 78 22 100/65 90 L 04/14/22 14:09 90 L 02/06/23 13:11 96 H 23 110/89 90 L 04/14/22 12:36 96 H 21 126/77 90 L 04/14/22 11:03 104 H 18 116/81 92 L 04/14/22 10:21 100 H 21 117/86 97 04/14/22 08:35 106 H 28 H 90 L Pain Assessment - Last Documented Pain Intensity 0 Intake and Output: Intake & Output 04/12/22 04/13/22 04/14/22 04/15/22 11:59 11:59 11:59 11:59 Intake Total 480 Balance 480 Weight 57.3 kg 53.2 kg Lab Results: Lab Results-Last 24 Hours 04/14/22 04/14/22 04/14/22 Range/Units 08:15 08:30 08:30 WBC (4.0-10.5) x10^3/uL RBC (4.1-5.4) x10^6/uL Hgb (12.0-16.0) g/dL Hct (35-47) % MCV (78-100) fL MCH (26-32) pg MCHC (32-36) g/dL RDW (11.5-14.0) % Plt Count (150-450) x10^3/uL MPV (7.5-11.0) fL Gran % (36.0-66.0) % Immature Gran % (Auto) (0.00-0.4) % Nucleat RBC Rel Count (0.00-0.1) % Eos # (Auto) (0-0.5) x10^3/uL Immature Gran # (Auto) (0.00-0.03) x10^3u/L Absolute Lymphs (auto) (1.0-4.6) x10^3/uL Absolute Monos (auto) (0.0-1.3) x10^3/uL Absolute Nucleated RBC (0.00-0.01) x10^3u/L Lymphocytes % (24.0-44.0) % Monocytes % (0.0-12.0) % Eosinophils % (0.00-5.0) % Basophils % (0.0-0.4) % Absolute Granulocytes (1.4-6.9) x10^3/uL Basophils # (0-0.4) x10^3/uL D-Dimer 0.67 H* (0.0-0.50) mg/L Sodium 135 L (137-145) mmol/L Potassium 4.1 (3.5-5.1) mmol/L Chloride 101 (98-107) mmol/L Carbon Dioxide 26 (22-30) mmol/L Anion Gap 12.3 (5-15) MEQ/L BUN 8 (7-17) mg/dL Creatinine 0.55 (0.52-1.04) mg/dL Estimated GFR > 60.0 ML/MIN Glucose 144 H (74-106) mg/dL Calcium 9.2 (8.4-10.2) mg/dL Total Bilirubin 0.80 (0.2-1.3) mg/dL AST 22 (14-36) U/L ALT 18 (0-35) U/L Alkaline Phosphatase 90 (38-126) U/L Troponin I 0.017 (0.000-0.034) ng/mL NT-Pro-B Natriuret Pep 1940 H (0-900) pg/mL Serum Total Protein 7.5 (6.3-8.2) g/dL Albumin 4.2 (3.5-5.0) g/dL Influenza Type A Ag (NEGATIVE) Influenza Type B Ag (NEGATIVE) RSV (PCR) (Negative) SARS-CoV-2 (PCR) (NEGATIVE) 04/14/22 04/14/22 04/14/22 Range/Units 08:34 16:38 Unknown WBC 9.9 (4.0-10.5) x10^3/uL RBC 4.60 (4.1-5.4) x10^6/uL Hgb 14.2 (12.0-16.0) g/dL Hct 42.7 (35-47) % MCV 92.8 (78-100) fL MCH 30.9 (26-32) pg MCHC 33.3 (32-36) g/dL RDW 12.8 (11.5-14.0) % Plt Count 275 (150-450) x10^3/uL MPV 10.7 (7.5-11.0) fL Gran % 66.8 H (36.0-66.0) % Immature Gran % (Auto) 0.3 (0.00-0.4) % Nucleat RBC Rel Count 0.0 (0.00-0.1) % Eos # (Auto) 0.08 (0-0.5) x10^3/uL Immature Gran # (Auto) 0.03 (0.00-0.03) x10^3u/L Absolute Lymphs (auto) 2.04 (1.0-4.6) x10^3/uL Absolute Monos (auto) 1.12 (0.0-1.3) x10^3/uL Absolute Nucleated RBC 0.00 (0.00-0.01) x10^3u/L Lymphocytes % 20.6 L (24.0-44.0) % Monocytes % 11.3 (0.0-12.0) % Eosinophils % 0.8 (0.00-5.0) % Basophils % 0.2 (0.0-0.4) % Absolute Granulocytes 6.62 (1.4-6.9) x10^3/uL Basophils # 0.02 (0-0.4) x10^3/uL D-Dimer (0.0-0.50) mg/L Sodium (137-145) mmol/L Potassium (3.5-5.1) mmol/L Chloride (98-107) mmol/L Carbon Dioxide (22-30) mmol/L Anion Gap (5-15) MEQ/L BUN (7-17) mg/dL Creatinine (0.52-1.04) mg/dL Estimated GFR ML/MIN Glucose (74-106) mg/dL Calcium (8.4-10.2) mg/dL Total Bilirubin (0.2-1.3) mg/dL AST (14-36) U/L ALT (0-35) U/L Alkaline Phosphatase (38-126) U/L Troponin I < 0.012 (0.000-0.034) ng/mL NT-Pro-B Natriuret Pep (0-900) pg/mL Serum Total Protein (6.3-8.2) g/dL Albumin (3.5-5.0) g/dL Influenza Type A Ag NEGATIVE (NEGATIVE) Influenza Type B Ag NEGATIVE (NEGATIVE) RSV (PCR) NEGATIVE (Negative) SARS-CoV-2 (PCR) NEGATIVE (NEGATIVE) Radiology Exams: Radiology Procedures Category Date Time Status CHEST WITH CONTRAST [CT] Stat Exams 04/14/22 09:41 Completed Multi-Disciplinary Progress Notes: Multi-Disciplinary Progress Notes 04/15/22 03:01 Respiratory Note by Bozena Pretty RT at bedside for scheduled neb tx at 0230. Pt states she is not SOB and would like to refuse tx at this time. HR 84, RR 18, SpO2 93% on room air. Breathsounds clear throughout. Initialized on 04/15/22 03:01 - END OF NOTE Assessment/Plan (1) Pneumonia Current Visit: Yes Status: Acute Qualifiers: Pneumonia type: due to Pneumococcus Laterality: left Lung location: lower lobe of lung Qualified Code(s): J13 - Pneumonia due to Streptococcus pneumoniae Assessment & Plan: Chief Complaint Diagnosis Pneumonia, COPD exacerbation Allergies Allergy/AdvReac Type Severity Reaction Status Date / Time tetracycline Allergy Verified 04/14/22 07:54 Vital Signs (Last 24 hours) Temp Pulse Resp BP Pulse Ox 04/15/22 07:48 97.9 F 75 16 110/68 94 L 04/15/22 07:27 88 16 95 04/14/22 23:33 97.6 F 87 16 129/69 95 04/14/22 23:18 90 16 95 04/14/22 19:32 97.8 F 101 H 16 115/62 95 04/14/22 18:34 111 H 20 95 04/14/22 17:40 98.0 F 97 H 18 109/69 91 L 04/14/22 16:43 98.0 F 97 H 18 109/69 91 L 04/14/22 16:00 98.0 F 97 H 18 109/69 91 L 04/14/22 15:16 78 22 100/65 90 L 04/14/22 14:09 90 L 04/14/22 13:11 96 H 23 110/89 90 L 04/14/22 12:36 96 H 21 126/77 90 L 04/14/22 11:03 104 H 18 116/81 92 L 04/14/22 10:21 100 H 21 117/86 97 04/14/22 08:35 106 H 28 H 90 L Home Medications Medication Instructions Recorded Confirmed Last Taken Type Acetaminophen 500 mg [Tylenol 1,000 mg PO Q4HPRN PRN 04/14/22 04/14/22 U nknown History Extra Strength 500 mg] Escitalopram Oxalate [Lexapro] 10 mg PO HS 04/14/22 04/14/22 04/13/22 History Ibuprofen 200 mg [Motrin 200 400 mg PO Q6HPRN PRN 04/14/22 04/14/22 Unknown History mg] Lorazepam 0.5 mg [Ativan 0.5 0.5 mg PO DAILY PRN PRN 04/14/22 04/14/22 Unknown History MG] Lorazepam 1 mg [Ativan 1 MG] 1.5 mg PO HS 04/14/22 04/14/22 04/13/22 History Current Medications Generic Name Dose Route Start Last Admin Trade Name Freq PRN Reason Stop Dose Admin Acetaminophen 1,000 mg 04/14/22 17:20 Acetaminophen 500 Mg Tablet PO 05/14/22 17:19 Q4HPRN PRN PAIN AND/OR FEVER Albuterol/Ipratropium 3 ml 04/14/22 16:52 04/15/22 07:06 Ipratropium/Albuterol Sulfate 3 Ml Ampul.Neb IH 05/14/22 16:51 Not Given Q4HRT [facility] Methylprednisolone Sodium 0 mg 04/14/22 18:00 04/15/22 01:18 Succinate 60 mg/ Sterile Water IV 05/14/22 17:59 Not Given 2 ml Q6HT [facility] Escitalopram Oxalate 10 mg 04/14/22 22:00 04/14/22 23:58 Escitalopram Oxalate 10 Mg Tablet PO 05/14/22 21:59 10 mg HS [facility] Administration Ceftriaxone Sodium/Dextrose 1 g in 50 mls @ 100 mls/hr 04/15/22 10:00 Rocephin 1 Gm-D5w 50 Ml Bag IV 04/18/22 09:59 Q24H10 [facility] Azithromycin 500 mg in 250 mls @ 250 mls/hr 04/15/22 10:00 Zithromax 500 Mg/ 250 Ml Nacl Premix IV 05/15/22 09:59 Q24H10 [facility] Ibuprofen 400 mg 04/14/22 17:24 Ibuprofen 400 Mg Tablet PO 05/14/22 17:23 Q6HPRN PRN PAIN AND/OR FEVER Lorazepam 0.5 mg 02/06/23 17:20 Lorazepam 0.5 Mg Tablet PO 05/14/22 17:19 BIDPRN PRN ANXIETY Lorazepam 1 mg 04/15/22 22:00 Lorazepam 1 Mg Tablet PO 05/14/22 21:59 HS GORDY Lorazepam 0.5 mg 04/15/22 22:00 Lorazepam 0.5 Mg Tablet PO 05/15/22 21:59 HS GORDY Discontinued Medications Generic Name Dose Route Start Last Admin Trade Name Catr[place]ita PRN Reason Stop Dose Admin Albuterol/Ipratropium 3 ml 04/14/22 08:24 04/14/22 08:35 Ipratropium/Albuterol Sulfate 3 Ml Ampul.Neb IH 04/14/22 08:25 3 ml STAT ONE Administration Albuterol/Ipratropium Confirm 04/14/22 08:27 Ipratropium/Albuterol Sulfate 3 Ml Ampul.Neb Administered 04/14/22 08:28 Dose 3 ml IH .STK-MED ONE Methylprednisolone Sodium 0 mg 04/14/22 08:24 04/14/22 08:43 Succinate 125 mg/ Sterile IV 04/14/22 08:25 125 mg Water 2 ml STAT ONE Administration Azithromycin 500 mg in 250 mls @ 250 mls/hr 04/14/22 11:53 04/14/22 14:57 Zithromax 500 Mg/ 250 Ml Nacl Premix IV 04/14/22 12:52 Infused STAT STA Infusion Ceftriaxone Sodium/Dextrose 2 g in 50 mls @ 100 mls/hr 04/14/22 11:53 04/14/22 14:57 Rocephin 2 Gm-D5w 50ml Bag IV 04/14/22 12:22 Infused STAT STA Infusion Ceftriaxone Sodium/Dextrose Confirm 04/14/22 13:22 Rocephin 2 Gm-D5w 50ml Bag Administered 04/14/22 13:23 Dose 2 g in 50 mls @ ud IV .STK-MED ONE Azithromycin Confirm 04/14/22 13:54 Zithromax 500 Mg/ 250 Ml Nacl Premix Administered 04/14/22 13:55 Dose 500 mg in 250 mls @ ud IV .STK-MED ONE Lorazepam 1.5 mg 04/14/22 22:00 04/14/22 23:58 Lorazepam 1 Mg Tablet PO 05/14/22 21:59 1.5 mg HS GORDY Administration Methylprednisolone Sodium Succinate Confirm 04/14/22 08:38 Methylprednis Sod Succ 125 Mg/2 Ml Vial Administered 04/14/22 08:39 Dose 125 mg .ROUTE .STK-MED ONE Sterile Water Confirm 04/14/22 08:38 Water For Injection,Sterile 10 Ml Vial Administered 04/14/22 08:39 Dose 10 ml IJ .STK-MED ONE Intake & Output (Last 24 hours) 04/12/22 04/13/22 04/14/22 04/15/22 11:59 11:59 11:59 11:59 Intake Total 480 Balance 480 Weight 57.3 kg 53.2 kg Microbiology Results (Last 24 hours) 04/14/22 08:34 Blood Blood Culture Gram Stain - Pending 04/14/22 08:34 Blood Blood Culture - Pending 04/14/22 08:34 Blood Blood Culture Gram Stain - Pending 04/14/22 08:34 Blood Blood Culture - Pending Laboratory Results (Last 24 hours) 04/14/22 04/14/22 04/14/22 Unknown 16:38 08:34 WBC 9.9 RBC 4.60 Hgb 14.2 Hct 42.7 MCV 92.8 MCH 30.9 MCHC 33.3 RDW 12.8 Plt Count 275 MPV 10.7 Gran % 66.8 H Immature Gran % (Auto) 0.3 Nucleat RBC Rel Count 0.0 Eos # (Auto) 0.08 Immature Gran # (Auto) 0.03 Absolute Lymphs (auto) 2.04 Absolute Monos (auto) 1.12 Absolute Nucleated RBC 0.00 Lymphocytes % 20.6 L Monocytes % 11.3 Eosinophils % 0.8 Basophils % 0.2 Absolute Granulocytes 6.62 Basophils # 0.02 D-Dimer Sodium Potassium Chloride Carbon Dioxide Anion Gap BUN Creatinine Estimated GFR Glucose Calcium Total Bilirubin AST ALT Alkaline Phosphatase Troponin I < 0.012 NT-Pro-B Natriuret Pep Serum Total Protein Albumin Influenza Type A Ag NEGATIVE Influenza Type B Ag NEGATIVE RSV (PCR) NEGATIVE SARS-CoV-2 (PCR) NEGATIVE 04/14/22 04/14/22 04/14/22 08:30 08:30 08:15 WBC RBC Hgb Hct MCV MCH MCHC RDW Plt Count MPV Gran % Immature Gran % (Auto) Nucleat RBC Rel Count Eos # (Auto) Immature Gran # (Auto) Absolute Lymphs (auto) Absolute Monos (auto) Absolute Nucleated RBC Lymphocytes % Monocytes % Eosinophils % Basophils % Absolute Granulocytes Basophils # D-Dimer 0.67 H* Sodium 135 L Potassium 4.1 Chloride 101 Carbon Dioxide 26 Anion Gap 12.3 BUN 8 Creatinine 0.55 Estimated GFR > 60.0 Glucose 144 H Calcium 9.2 Total Bilirubin 0.80 AST 22 ALT 18 Alkaline Phosphatase 90 Troponin I 0.017 NT-Pro-B Natriuret Pep 1940 H Serum Total Protein 7.5 Albumin 4.2 Influenza Type A Ag Influenza Type B Ag RSV (PCR) SARS-CoV-2 (PCR) Orders (Last 24 hours) Category Date Time Status Bedrest ROUTINE Activity 04/14/22 16:52 Active Stem Mounter STAT Care 04/14/22 08:13 Completed Code Status Order ROUTINE Care 04/14/22 16:52 Active EKG-ER Only STAT Care 04/14/22 08:13 Completed IV Care Q6H Care 04/14/22 16:52 Active IV Insertion STAT Care 04/14/22 08:[address] in Observation ROUTINE Care 04/14/22 16:52 Active Pulse Oximetry (ED) STAT Care 04/14/22 08:13 Completed Curry Wilson, Apply ROUTINE Care 04/14/22 16:52 Active Telemetry q4h Care 04/14/22 16:52 Active Weight,Daily 0600 Care 04/14/22 16:52 Active Kiln Feeder/Discharge Plan ROUTINE Cons 04/14/22 17:39 Active Kiln Feeder/Discharge Plan ROUTINE Cons 04/14/22 18:09 Active Clear Liquid Diet 04/14/22 Dinner Completed House Regular Diet Diet 04/14/22 Dinner Active CHEST WITH CONTRAST [CT] Stat Exams 04/14/22 09:41 Completed BLOOD CULTURE Stat Lab 04/14/22 08:34 Received CBC W DIFF Stat Lab 04/14/22 08:34 Completed CMP Stat Lab 04/14/22 08:30 Completed D-DIMER QUANTITATIVE Stat Lab 04/14/22 08:30 Completed NT PRO BNP Stat Lab 04/14/22 08:30 Completed TROPONIN Q4H Lab 04/14/22 08:15 Completed TROPONIN Q4H Lab 04/14/22 08:34 Received TROPONIN Q4H Lab 04/14/22 16:38 Completed Acetaminophen 500 mg [Tylenol Extra Strength 500 mg* Med 04/14/22 17:20 Active ] 1,000 mg PO Q4HPRN PRN Albuterol/Ipratropium 3ml Neb* [DUONEB 0.5-3 MG/3 ml Med 04/14/22 08:27 Discontinued Neb] 3 ml IH .STK-MED ONE Albuterol/Ipratropium 3ml Neb* [DUONEB 0.5-3 MG/3 ml Med 04/14/22 16:52 Active Neb] 3 ml IH Q4HRT Albuterol/Ipratropium 3ml Neb* [DUONEB 0.5-3 MG/3 ml Med 04/14/22 08:24 Discontinued Neb] 3 ml IH STAT ONE Azithromycin 500 mg/250 ml [Zithromax 500 MG/ 250 ML Med 04/15/22 10:00 Active NaCl Premix] 500 mg in 250 ml IV Q24H10 Azithromycin 500 mg/250 ml [Zithromax 500 MG/ 250 ML Med 04/14/22 11:53 Discontinued NaCl Premix] 500 mg in 250 ml IV STAT Azithromycin 500 mg/250 ml [Zithromax 500 MG/ 250 ML Med 04/14/22 13:54 Discontinued NaCl Premix] 500 mg in 250 ml IV UD Ceftriaxone 1 GM/50 ML PREMIX* [ROCEPHIN 1 Gm-D5w 50 ml Med 04/15/22 10:00 Active Bag] 1 g in 50 ml IV Q24H10 Ceftriaxone 2 GM/50 ML PREMIX* [ROCEPHIN 2 Gm-D5w 50ML Med 04/14/22 11:53 Discontinued BAG] 2 g in 50 ml IV STAT Ceftriaxone 2 GM/50 ML PREMIX* [ROCEPHIN 2 Gm-D5w 50ML Med 04/14/22 13:22 Discontinued BAG] 2 g in 50 ml IV UD Escitalopram Oxalate [Lexapro] Med 04/14/22 22:00 Active 10 mg PO HS Ibuprofen 400 mg [Motrin 400 mg] Med 04/14/22 17:24 Active 400 mg PO Q6HPRN PRN Lorazepam 0.5 mg [Ativan 0.5 MG] Med 04/14/22 17:20 Active 0.5 mg PO BIDPRN PRN Lorazepam 0.5 mg [Ativan 0.5 MG] Med 04/15/22 22:00 Active 0.5 mg PO HS Lorazepam 1 mg [Ativan 1 MG] Med 04/15/22 22:00 Active 1 mg PO HS Lorazepam 1 mg [Ativan 1 MG] Med 04/14/22 22:00 Discontinued 1.5 mg PO HS Methylprednis Sod Succ 125 mg* [solu-MEDROL] Med 04/14/22 08:38 Discontinued 125 mg .ROUTE .STK-MED ONE Methylprednis Sod Succ 125 mg* [solu-MEDROL] 125 mg Med 04/14/22 08:24 Discontinued Water For Injection,Sterile [Sterile H2O 10 ml] 2 ml IV STAT Methylprednis Sod Succ 125 mg* [solu-MEDROL] 60 mg Med 04/14/22 18:00 Active Water For Injection,Sterile [Sterile H2O 10 ml] 2 ml IV Q6HT Water For Injection,Sterile [Sterile H2O 10 ml] Med 04/14/22 08:38 Discontinued 10 ml IJ .STK-MED ONE Pulse Oximetry CONTINUOUS RT 04/14/22 16:52 Active Respiratory Therapy Assessment DAILY RT 04/14/22 08:45 Active Smoking Cessation Education ONCE RT 04/14/22 18:09 Completed Patient Care Notes (Last 24 hours) 04/15/22 03:01 Respiratory Note by Bozena Pretty RT at bedside for scheduled neb tx at 0230. Pt states she is not SOB and would like to refuse tx at this time. HR 84, RR 18, SpO2 93% on room air. Breathsounds clear throughout. Initialized on 04/15/22 03:01 - END OF NOTE 04/14/22 20:43 Nursing Note by Norma Solis Pt states, "I dont want my night time meds until midnight! I dont want to be bothered with vital signs at 4am." Sl[employer] Floor Person and pt agreed that if pts vital signs are wnl at 0000, vital signs will be deferred to next shift per pts request. Pt states she does not want to take 2200 meds until 0000. Initialized on 04/14/22 20:43 - END OF NOTE Code(s): J18.9 - PNEUMONIA, UNSPECIFIED ORGANISM (2) Chest pain Current Visit: Yes Status: Acute Qualifiers: Chest pain type: chest pain on breathing Qualified Code(s): R07.1 - Chest pain on breathing; R07.81 - Pleurodynia Code(s): R07.9 - CHEST PAIN, UNSPECIFIED (3) Hypoxia Current Visit: Yes Status: Resolved Code(s): R09.02 - HYPOXEMIA
[2022-04-15] MEDS ORDERED: DUONEB 0.5-3 MG/3 ml Neb IH PRN (09:53)
[2022-04-15 10:28] LABS: Hematocrit 39.7 % (35-47); Hemoglobin 13.2 g/dL (12.0-16.0); Mean Cell Volume 93.6 fL (78-100); Mean Corpuscular Hemoglobin 31.1 pg (26-32); Mean Corpuscular Hgb Concent. 33.2 g/dL (32-36); Mean Platelet Volume 10.4 fL (7.5-11.0); Platelet Count 254 x10^3/uL (150-450); Red Blood Count 4.24 x10^6/uL (4.1-5.4); Red Cell Distribution Width 12.8 % (11.5-14.0); White Blood Count 15.6 x10^3/uL (4.0-10.5)
[2022-04-15 10:43] LABS: ALBUMIN 4.1 g/dL (3.5-5.0); ALKALINE PHOSPHATASE 74 U/L (38-126); ANION GAP 11.6 MEQ/L (5-15); BLOOD UREA NITROGEN 14 mg/dL (7-17); CHLORIDE 100 mmol/L (98-107); Calcium 9.7 mg/dL (8.4-10.2); Carbon Dioxide 32 mmol/L (22-30); Creatinine 1 0.46 mg/dL (0.52-1.04); EST GLOMERULAR FILTRATION RATE > 60.0 ML/MIN; Glucose 208 mg/dL (74-106); Potassium 4.3 mmol/L (3.5-5.1); SGOT/AST 23 U/L (14-36); SGPT/ALT 21 U/L (0-35); SODIUM 139 mmol/L (137-145); Total Protein 7.2 g/dL (6.3-8.2)
[2022-04-15] MEDS: ROCEPHIN 1 Gm-D5w 50 ml Bag** 1 G/50 ML IVPB IV SCH (10:54)
[2022-04-15] MEDS ORDERED: solu-MEDROL ONE (11:18)
[2022-04-15] MEDS: Zithromax 500 MG/ 250 ML NaCl Premix 500 MG/250 ML IVPB IV SCH (11:30)
[2022-04-15] MEDS ORDERED: Ativan 0.5 MG PO SCH (13:00)
[2022-04-15] MEDS ORDERED: TYLENOL 325 MG PO PRN (19:59)
[2022-04-15] MEDS: Lexapro PO SCH (23:20)
[2022-04-16] MEDS ORDERED: Ativan 1 MG PO SCH
[2022-04-16] MEDS ORDERED: solu-MEDROL ONE (06:39)
[2022-04-16] MEDS: solu-MEDROL 60 MG, Sterile H2O 10 ml 2 ML IV SCH ×4 (06:43→11:53)
[2022-04-16] MEDS: ROCEPHIN 1 Gm-D5w 50 ml Bag** 1 G/50 ML IVPB IV SCH (09:26)
--- NOTE | 2022-04-16 09:38 | PCM.SSS ---
History of Present Illness - Chief Complaint Chief Complaint: Pneumonia, COPD exacerbation History of Present Illness: is a 66 year old female patient of mine who presented to ER c/o left sided chest pain and fatigue. ER evaluation revealed Left sided pneumonia.PMHx includes COPD,Asthma current smoker,migraines,chronic vertigo,anxiety and depression. Pateint rarely leaves her home due to fear of vertigo and chronic anxiety over this. Patient was admitted to [facility] and started on IV Zithromax,Rocephin and Solumedrol with RT to follow . Other that anxiety post albuterol treatment,patient has done well. Appetite is good and wheezing resolved overnight. - Review of Systems Constitutional: Fatigue Eyes: No Symptoms (mild) Ears, Nose, & Throat: Nose Congestion, Other (chronic vertigo but not currently in a flare up) Respiratory: Short Of Breath (resolved), Wheezing Cardiac: Chest Pain (was left sided under left breast now is left axillary line dull ache) Abdominal/Gastrointestinal: No Symptoms Genitourinary Symptoms: No Symptoms Musculoskeletal: No Symptoms Skin: No Symptoms Neurological: Vertigo (not symptomatic today) Psychological: Anxiety, Depression Endocrine: No Symptoms Hematologic/Lymphatic: No Symptoms Immunological/Allergic: No Symptoms Medications & Allergies Home Medications: Home Medication List Acetaminophen 500 mg [Tylenol Extra Strength 500 mg] 1,000 mg PO Q4HPRN PRN 04/14/22 [History Confirmed 04/14/22] Escitalopram Oxalate [Lexapro] 10 mg PO HS 04/14/22 [History Confirmed 04/14/22] Ibuprofen 200 mg [Motrin 200 mg] 400 mg PO Q6HPRN PRN 04/14/22 [History Confirmed 04/14/22] Lorazepam 0.5 mg [Ativan 0.5 MG] 0.5 mg PO DAILY PRN PRN 04/14/22 [History Confirmed 04/14/22] Lorazepam 1 mg [Ativan 1 MG] 1.5 mg PO HS 04/14/22 [History Confirmed 04/14/22] Azithromycin 250 mg [Zithromax 250 MG TABLET] 250 mg PO DAILY #4 tablet 04/16/22 [Rx] Cefuroxime Axetil 500 mg [Ceftin 500 mg] 0 mg PO BID #10 tablet 04/16/22 [Rx] Allergies/Adverse Reactions: Allergies Allergy/AdvReac Type Severity Reaction Status Date / Time tetracycline Allergy Verified 04/14/22 07:54 - Past Medical History Past Medical History: Yes Neurological History: Migraines ENT History: No Pertinent History, Other (vertigo) Respiratory History: Asthma, COPD Pyscho-Social History: Anxiety, Depression Comment: Vestibular migraines - Female History Hx Last Menstrual Period: POST - Past Surgical History Past Surgical History: Yes GI Surgical History: Appendectomy - Social History Smoking Status: Current every day smoker How long have you smoked: "50 years" Exposure to second hand smoke: Yes Alcohol: Rarely Drug Use: marijuana - Physical Exam Vital Signs: Vital Signs - 24 hr Temp Pulse Resp BP Pulse Ox 04/16/22 07:19 97.8 F 71 13 133/74 98 04/16/22 06:31 61 16 96 04/16/22 04:00 97.7 F 63 17 112/68 94 L 04/15/22 23:46 97.9 F 85 21 137/78 96 04/15/22 20:00 97.7 F 83 20 109/63 94 L 04/15/22 19:05 88 18 93 L 04/15/22 16:22 94 L 04/15/22 16:00 98.1 F 78 16 134/72 93 L 04/15/22 11:40 98.3 F 95 H 16 129/89 97 General Appearance: no apparent distress Neurologic Exam: alert, oriented x 3, cooperative, normal mood/affect (talk ative), nml cerebellar function, nml station & gait Eye Exam: eyes nml inspection Ears, Nose, Throat Exam: moist mucous membranes Neck Exam: normal inspection Respiratory Exam: normal breath sounds, other (patient is on room air talkative) Cardiovascular Exam: regular rate/rhythm Results - Labs Lab/Micro Results: Lab Results-Last 24 Hours 04/15/22 04/15/22 Range/Units 10:29 10:29 WBC 15.6 H (4.0-10.5) x10^3/uL RBC 4.24 (4.1-5.4) x10^6/uL Hgb 13.2 (12.0-16.0) g/dL Hct 39.7 (35-47) % MCV 93.6 (78-100) fL MCH 31.1 (26-32) pg MCHC 33.2 (32-36) g/dL RDW 12.8 (11.5-14.0) % Plt Count 254 (150-450) x10^3/uL MPV 10.4 (7.5-11.0) fL Sodium 139 (137-145) mmol/L Potassium 4.3 (3.5-5.1) mmol/L Chloride 100 (98-107) mmol/L Carbon Dioxide 32 H (22-30) mmol/L Anion Gap 11.6 (5-15) MEQ/L BUN 14 (7-17) mg/dL Creatinine 0.46 L (0.52-1.04) mg/dL Estimated GFR > 60.0 ML/MIN Glucose 208 H (74-106) mg/dL Calcium 9.7 (8.4-10.2) mg/dL Total Bilirubin 0.30 (0.2-1.3) mg/dL AST 23 (14-36) U/L ALT 21 (0-35) U/L Alkaline Phosphatase 74 (38-126) U/L Serum Total Protein 7.2 (6.3-8.2) g/dL Albumin 4.1 (3.5-5.0) g/dL - Radiology Impressions Radiology Exams & Impressions: Radiology Procedures Category Date Time Status CHEST WITH CONTRAST [CT] Stat Exams 04/14/22 09:41 Completed Assessment/Plan (1) Pneumonia Current Visit: Yes Status: Acute Qualifiers: Pneumonia type: due to Pneumococcus Laterality: left Lung location: lower lobe of lung Qualified Code(s): J13 - Pneumonia due to Streptococcus pneumoniae Assessment & Plan: improved on current TX will change to oral Code(s): J18.9 - PNEUMONIA, UNSPECIFIED ORGANISM (2) Chest pain Current Visit: Yes Status: Resolved Qualifiers: Chest pain type: chest pain on breathing Qualified Code(s): R07.1 - Chest pain on breathing; R07.81 - Pleurodynia Assessment & Plan: not cardiac-due to pneumonia Code(s): R07.9 - CHEST PAIN, UNSPECIFIED (3) COPD (chronic obstructive pulmonary disease) Current Visit: Yes Status: Chronic Assessment & Plan: smoke cessation Hospital Summary - Hospital Course Hospital Course: See HPI. Patient will go home on Oral atb and prednisone and see me next week. - Vitals & Intake/Output Vital Signs: Vital Signs Temperature 97.8 F 04/16/22 07:19 Pulse Rate 71 04/16/22 07:19 Respiratory Rate 13 04/16/22 07:19 Blood Pressure 133/74 04/16/22 07:19 O2 Sat by Pulse Oximetry 98 04/16/22 07:19 Intake & Output: Intake & Output 04/13/22 04/14/22 04/15/22 04/16/22 11:59 11:59 11:59 11:59 Intake Total 1060 1900 Output Total 1400 Balance 1060 500 Weight 57.3 kg 53.2 kg 53.1 kg - Lab Result Diagrams: 04/16/22 10:30 04/16/22 10:32 Lab Results-Last 24 Hrs: Lab Results-Last 24 Hours 04/15/22 04/15/22 Range/Units 10:29 10:29 WBC 15.6 H (4.0-10.5) x10^3/uL RBC 4.24 (4.1-5.4) x10^6/uL Hgb 13.2 (12.0-16.0) g/dL Hct 39.7 (35-47) % MCV 93.6 (78-100) fL MCH 31.1 (26-32) pg MCHC 33.2 (32-36) g/dL RDW 12.8 (11.5-14.0) % Plt Count 254 (150-450) x10^3/uL MPV 10.4 (7.5-11.0) fL Sodium 139 (137-145) mmol/L Potassium 4.3 (3.5-5.1) mmol/L Chloride 100 (98-107) mmol/L Carbon Dioxide 32 H (22-30) mmol/L Anion Gap 11.6 (5-15) MEQ/L BUN 14 (7-17) mg/dL Creatinine 0.46 L (0.52-1.04) mg/dL Estimated GFR > 60.0 ML/MIN Glucose 208 H (74-106) mg/dL Calcium 9.7 (8.4-10.2) mg/dL Total Bilirubin 0.30 (0.2-1.3) mg/dL AST 23 (14-36) U/L ALT 21 (0-35) U/L Alkaline Phosphatase 74 (38-126) U/L Serum Total Protein 7.2 (6.3-8.2) g/dL Albumin 4.1 (3.5-5.0) g/dL - Radiology Exams Ordered Rad Exams-Entire Visit: Radiology Procedures Category Date Time Status CHEST WITH CONTRAST [CT] Stat Exams 04/14/22 09:41 Completed - Procedures and Test Procedures and Tests throughout Hospitalization: Therapy Orders & Screens 04/14/22 08:45 Respiratory Therapy Assessment DAILY Comment: 04/14/22 18:09 Smoking Cessation Education ONCE Comment: Diagnosis: Pneumonia, COPD exacerbation Smoking Status: Current every day smoker How long have you smoked: "50 years" Have you smoked in the past 12 months: Yes Approximately how many cigarettes per day: 20 Do you dip or chew tobacco: No - Discharge Disposition: Home, Self-Care Condition: Stable Prescriptions: New Azithromycin 250 mg [Zithromax 250 MG TABLET] 250 mg PO DAILY #4 tablet Cefuroxime Axetil 500 mg [Ceftin 500 mg] 0 mg PO BID #10 tablet Continue Lorazepam 1 mg [Ativan 1 MG] 1.5 mg PO HS Escitalopram Oxalate [Lexapro] 10 mg PO HS Acetaminophen 500 mg [Tylenol Extra Strength 500 mg] 1,000 mg PO Q4HPRN PRN PRN Reason: Pain And/Or Fever Lorazepam 0.5 mg [Ativan 0.5 MG] 0.5 mg PO DAILY PRN PRN PRN Reason: Anxiety Ibuprofen 200 mg [Motrin 200 mg] 400 mg PO Q6HPRN PRN PRN Reason: Pain And/Or Fever Follow up with: MAURI CHRISTOPHER DO [Primary Care Provider] - 04/21/22 11:00 am
[2022-04-16] MEDS ORDERED: Ativan 0.5 MG PO SCH ×2 (10:00)
[2022-04-16] MEDS: Zithromax 500 MG/ 250 ML NaCl Premix 500 MG/250 ML IVPB IV SCH (10:09)
[2022-04-16 10:38] LABS: Absolute Neutrophil Ct (ANC) 15.02 x10^3/uL (1.4-6.9); BASOPHIL % 0.1 % (0.0-0.4); Basophil (Absolute #) 0.02 x10^3/uL (0-0.4); Eosinophil (Absolute #) 0 x10^3/uL (0-0.5); Hematocrit 42.4 % (35-47); Hemoglobin 13.8 g/dL (12.0-16.0); IMMATURE GRAN # 0.09 x10^3u/L (0.00-0.03); IMMATURE GRAN % 0.6 % (0.00-0.4); Lymphocyte (Absolute #) 0.73 x10^3/uL (1.0-4.6); Lymphocytes % 4.5 % (24.0-44.0); Mean Cell Volume 95.7 fL (78-100); Mean Corpuscular Hemoglobin 31.2 pg (26-32); Mean Corpuscular Hgb Concent. 32.5 g/dL (32-36); Mean Platelet Volume 10.7 fL (7.5-11.0); Monocyte (Absolute #) 0.43 x10^3/uL (0.0-1.3); Monocytes % 2.6 % (0.0-12.0); Neutrophil % 92.2 % (36.0-66.0); Platelet Count 285 x10^3/uL (150-450); Red Blood Count 4.43 x10^6/uL (4.1-5.4); Red Cell Distribution Width 12.9 % (11.5-14.0); White Blood Count 16.3 x10^3/uL (4.0-10.5)
[2022-04-16 10:53] LABS: ALKALINE PHOSPHATASE 76 U/L (38-126); ANION GAP 14.3 MEQ/L (5-15); BLOOD UREA NITROGEN 19 mg/dL (7-17); CHLORIDE 102 mmol/L (98-107); Calcium 9.4 mg/dL (8.4-10.2); Carbon Dioxide 28 mmol/L (22-30); Creatinine 1 0.52 mg/dL (0.52-1.04); EST GLOMERULAR FILTRATION RATE > 60.0 ML/MIN; Glucose 276 mg/dL (74-106); Potassium 4.1 mmol/L (3.5-5.1); SGOT/AST 26 U/L (14-36); SGPT/ALT 28 U/L (0-35); SODIUM 140 mmol/L (137-145); Total Protein 7.1 g/dL (6.3-8.2)
[2022-04-16 12:06] VITALS: BP 130/73; PULSE 84; O2SAT 92
--- NOTE | 2022-04-17 15:16 | ECHO ---
DATE OF PROCEDURE: 04/16/2022 CLINICAL INFORMATION: Elevated BNP. The M-mode 2D, and Doppler echocardiogram including color flow Doppler shows the left ventricle is moderately dilated. No thrombus is noted. The wall thickness is normal. Severe decrease in left ventricular systolic function. The ejection fraction is estimated to be 20 to 25%. There is evidence of possible impaired left ventricular relaxation. The right ventricle is normal. The left atrium is normal. The interatrial septum is intact. The right atrium is normal. The aortic valve opens well. There is no aortic regurgitation. There is mitral valve leaflet thickening associated with mild to moderate mitral regurgitation. There is mild tricuspid regurgitation. The right ventricular systolic pressure is calculated to be 51 mm of Mercury. The pulmonic valve is not well visualized. The aortic root is normal. There is no pericardial effusion present. IMPRESSION: 1) MODERATE TO SEVERE LEFT VENTRICULAR SYSTOLIC DYSFUNCTION. 2) MODERATE LEFT VENTRICULAR DILATATION. 3) POSSIBLE IMPAIRED LEFT VENTRICULAR RELAXATION. 4) MILD TO MODERATE MITRAL REGURGITATION. 5) MILD TRICUSPID REGURGITATION. 6) SEVERE PULMONARY HYPERTENSION.
== END 2022-04-16 15:05 | disposition home or self-care (01) ==
LOC: ED 07:48 → MED SURG 16:15
PROVIDERS: ADMIT General Practice; ATTEND Family Medicine
DX: J18.9 Pneumonia, unspecified organism (principal); R07.9 Chest pain, unspecified; J44.9 Chronic obstructive pulmonary disease, unspecified; R42 Dizziness and giddiness; Z79.899 Other long term (current) drug therapy; Z20.828 Contact with and (suspected) exposure to other viral communicable diseases; Z72.0 Tobacco use
CPT/HCPCS: 0241U; 36000; 36415; 71260; 80053; 83036; 83880; 84443; 84484; 85025; 85027; 85379; 87040; 93005; 93041; 93306; 94640; 94760; 94762; 96365; 96367; 96374; 99284; 93268; J0456; J0696; J2930; A9270-GY; G0378

== ENCOUNTER 2022-07-11 17:35 | Emergency (ER) | payer MEDICARE ==
[2022-07-11 17:44] VITALS: BP 151/99; O2SAT 98
[2022-07-11 17:45] VITALS: PULSE 75
[2022-07-11 18:03] LABS: Absolute Neutrophil Ct (ANC) 4.53 x10^3/uL (1.4-6.9); BASOPHIL % 0.3 % (0.0-0.4); Basophil (Absolute #) 0.02 x10^3/uL (0-0.4); Eosinophil (Absolute #) 0.24 x10^3/uL (0-0.5); Hematocrit 39.3 % (35-47); Hemoglobin 13.3 g/dL (12.0-16.0); IMMATURE GRAN # 0.01 x10^3u/L (0.00-0.03); IMMATURE GRAN % 0.1 % (0.00-0.4); Lymphocyte (Absolute #) 2.49 x10^3/uL (1.0-4.6); Lymphocytes % 31.4 % (24.0-44.0); Mean Cell Volume 91.8 fL (78-100); Mean Corpuscular Hemoglobin 31.1 pg (26-32); Mean Corpuscular Hgb Concent. 33.8 g/dL (32-36); Mean Platelet Volume 10.4 fL (7.5-11.0); Monocyte (Absolute #) 0.63 x10^3/uL (0.0-1.3); Neutrophil % 57.2 % (36.0-66.0); Platelet Count 244 x10^3/uL (150-450); Red Blood Count 4.28 x10^6/uL (4.1-5.4); Red Cell Distribution Width 13.7 % (11.5-14.0); White Blood Count 7.9 x10^3/uL (4.0-10.5)
[2022-07-11 18:20] LABS: ALBUMIN 4.5 g/dL (3.5-5.0); ALKALINE PHOSPHATASE 70 U/L (38-126); BLOOD UREA NITROGEN 17 mg/dL (7-17); CHLORIDE 104 mmol/L (98-107); Calcium 9.2 mg/dL (8.4-10.2); Carbon Dioxide 24 mmol/L (22-30); Creatinine 1 0.59 mg/dL (0.52-1.04); EST GLOMERULAR FILTRATION RATE > 60.0 ML/MIN; Glucose 116 mg/dL (74-106); Potassium 4.2 mmol/L (3.5-5.1); SGOT/AST 29 U/L (14-36); SGPT/ALT 34 U/L (0-35); SODIUM 141 mmol/L (137-145); Total Protein 7.5 g/dL (6.3-8.2)
--- NOTE | 2022-07-11 19:00 | ERPHSYRPT ---
- History of Present Illness Time Seen by Provider: 07/11/22 17:39 Source: patient Exam Limitations: no limitations Patient Subjective Stated Complaint: pt here for pain to left side of chest since she had a stent placed on june 16, she states she just doesn't feel right Triage Nursing Assessment: pt alert, resp easy,skin w/d/p, chest clear, no edema noted Physician History: Patient is here with chest pain. Started getting slightly worse today. Patient has a history of on and off chest pain since April. Patient received a stent in [place] on June 16. Patient has been doing cardiac rehab. Today at [facility] she described a spasm in her chest. It was short, sharp, nonradiating. Patient is currently chest pain free. Patient states that this "spasm" has been going on and off since her heart catheterization. She has not followed up with her pulmonologist intensivist for this Allergies/Adverse Reactions: tetracycline Allergy (Verified 07/11/22 17:38) Home Medications: Acetaminophen 500 mg [Tylenol Extra Strength 500 mg] 1,000 mg PO Q4HPRN PRN 04/14/22 [History] Escitalopram Oxalate [Lexapro] 10 mg PO HS 04/14/22 [History] Ibuprofen 200 mg [Motrin 200 mg] 400 mg PO Q6HPRN PRN 04/14/22 [History] Lorazepam 0.5 mg [Ativan 0.5 MG] 0.5 mg PO DAILY PRN PRN 04/14/22 [History] Lorazepam 1 mg [Ativan 1 MG] 1.5 mg PO HS 04/14/22 [History] Aspirin 81 gm Chew [Baby Aspirin 81 mg Chew] 81 mg PO DAILY 07/11/22 [History] Atorvastatin Calcium 1 ea DAILY 07/11/22 [History] Metoprolol Succinate 50 mg [Toprol Xl 50 MG] 50 mg PO BID 07/11/22 [History] Sacubitril/Valsartan [Entresto 24 mg-26 mg Tablet] 1 ea BID 07/11/22 [History] Spironolactone [Aldactone] 12.5 mg PO DAILY 07/11/22 [History] Ticagrelor [Brilinta] 1 puff DAILY 07/11/22 [History] Hx Tetanus, Diphtheria Vaccination/Date Given: No Hx Influenza Vaccination/Date Given: No Hx Pneumococcal Vaccination/Date Given: No Immunizations Up to Date: Yes Travel Risk - International Travel Have you traveled outside of the country in past 3 weeks: No - Coronavirus Screening Are you exhibiting any of the following symptoms?: No Close contact with a COVID-19 positive Pt in past 14-21 Days: No - Vaccine Status Have you recieved a Covid-19 vaccination: Yes Nursing Assistant: [employer] - Vaccination Dates Date of 2cond Vaccination (if applicable): UNK - Review of Systems Constitutional: No Fever, No Chills Eyes: No Symptoms Ears, Nose, & Throat: No Symptoms Respiratory: No Cough, No Dyspnea Cardiac: Chest Pain, No Edema, No Syncope Abdominal/Gastrointestinal: No Abdominal Pain, No Nausea, No Vomiting, No Diarrhea Genitourinary Symptoms: No Dysuria Musculoskeletal: No Back Pain, No Neck Pain Skin: No Rash Neurological: No Dizziness, No Focal Weakness, No Sensory Changes Psychological: No Symptoms Endocrine: No Symptoms All Other Systems: Reviewed and Negative - Past Medical History Pertinent Past Medical History: Yes Neurological History: Migraines ENT History: No Pertinent History, Other Cardiac History: Coronary Artery Disease Respiratory History: Asthma, COPD Psycho-Social History: Anxiety, Depression Other Medical History: Vestibular migraines - Past Surgical History Past Surgical History: Yes Cardiac: Cardiac Catheterization, Cardiac Stent Gastrointestinal: Appendectomy - Social History Smoking Status: Current every day smoker How long have you smoked: "50 years" Exposure to second hand smoke: Yes Drug Use: marijuana Patient Lives Alone: Yes - Nursing Vital Signs Nursing Vital Signs: Initial Vital Signs Temperature 98.0 F 07/11/22 17:42 Pulse Rate 82 07/11/22 17:42 Respiratory Rate 18 07/11/22 17:42 Blood Pressure 151/99 07/11/22 17:42 O2 Sat by Pulse Oximetry 98 07/11/22 17:42 Pain Scale Pain Intensity 3 - Physical Exam General Appearance: no apparent distress, alert Eye Exam: PERRL/EOMI, eyes nml inspection Ears, Nose, Throat Exam: normal ENT inspection, TMs normal, pharynx normal, moist mucous membranes Neck Exam: normal inspection, non-tender, supple, full range of motion Respiratory Exam: normal breath sounds, lungs clear, No respiratory distress Cardiovascular Exam: regular rate/rhythm, normal heart sounds, normal peripheral pulses Gastrointestinal/Abdomen Exam: soft, normal bowel sounds, No tenderness, No mass Back Exam: normal inspection, normal range of motion, No CVA tenderness, No vertebral tenderness Extremity Exam: normal inspection, normal range of motion, pelvis stable Neurologic Exam: alert, oriented x 3, cooperative, normal mood/affect, nml cerebellar function, nml station & gait, sensation nml, No motor deficits Skin Exam: normal color, warm, dry, No rash Lymphatic Exam: No adenopathy SpO2: 98 Ordered Tests: Active Orders 24 hr Category Date Time Status Residential Monitor STAT Care 07/11/22 17:56 Completed EKG-ER Only STAT Care 07/11/22 17:55 Completed CHEST 1 VIEW (PORTABLE) Stat Exams 07/11/22 17:56 Taken CBC W DIFF Stat Lab 07/11/22 17:55 Completed CMP Stat Lab 07/11/22 18:05 Completed TROPONIN Q4H Lab 07/11/22 18:05 Completed Lab/Rad Data: Laboratory Result Diagrams 07/11/22 17:55 07/11/22 18:05 Laboratory Results 07/11/22 07/11/22 07/11/22 Range/Units 18:05 18:05 17:55 WBC 7.9 (4.0-10.5) x10^3/uL RBC 4.28 (4.1-5.4) x10^6/uL Hgb 13.3 (12.0-16.0) g/dL Hct 39.3 (35-47) % MCV 91.8 (78-100) fL MCH 31.1 (26-32) pg MCHC 33.8 (32-36) g/dL RDW 13.7 (11.5-14.0) % Plt Count 244 (150-450) x10^3/uL MPV 10.4 (7.5-11.0) fL Gran % 57.2 (36.0-66.0) % Immature Gran % (Auto) 0.1 (0.00-0.4) % Nucleat RBC Rel Count 0.0 (0.00-0.1) % Eos # (Auto) 0.24 (0-0.5) x10^3/uL Immature Gran # (Auto) 0.01 (0.00-0.03) x10^3u/L Absolute Lymphs (auto) 2.49 (1.0-4.6) x10^3/uL Absolute Monos (auto) 0.63 (0.0-1.3) x10^3/uL Absolute Nucleated RBC 0.00 (0.00-0.01) x10^3u/L Lymphocytes % 31.4 (24.0-44.0) % Monocytes % 8.0 (0.0-12.0) % Eosinophils % 3.0 (0.00-5.0) % Basophils % 0.3 (0.0-0.4) % Absolute Granulocytes 4.53 (1.4-6.9) x10^3/uL Basophils # 0.02 (0-0.4) x10^3/uL Sodium 141 (137-145) mmol/L Potassium 4.2 (3.5-5.1) mmol/L Chloride 104 (98-107) mmol/L Carbon Dioxide 24 (22-30) mmol/L Anion Gap 17.0 H (5-15) MEQ/L BUN 17 (7-17) mg/dL Creatinine 0.59 (0.52-1.04) mg/dL Estimated GFR > 60.0 ML/MIN Glucose 116 H (74-106) mg/dL Calcium 9.2 (8.4-10.2) mg/dL Total Bilirubin 0.50 (0.2-1.3) mg/dL AST 29 (14-36) U/L ALT 34 (0-35) U/L Alkaline Phosphatase 70 (38-126) U/L Troponin I < 0.012 (0.000-0.034) ng/mL Serum Total Protein 7.5 (6.3-8.2) g/dL Albumin 4.5 (3.5-5.0) g/dL - Progress Progress: improved Progress Note: 07/11/22 20:29 differential diagnosis includes: PNA, STEMI, NSTEMI, other infection, musculoskeletal pain, pneumothorax - We'll obtain basic labs, fluids, EKG, troponin, chest x-ray - First troponin negative - EKG shows no ST changes - my read. See full read below. - O2 saturations consistently greater than 95%. - CXR shows no pneumonia, pneumothorax - my read - no other obvious lab abnormalities Reevaluation: Ultimately, patient is feeling improved here. No longer having muscle spasms. I would like to check a second troponin here and call the patient's pulmonologist intensivist. Patient adamantly declines this. States that she would like to leave at this point in time. Patient states that she does not feel she needs a second troponin. I did explain the risks and benefits of leaving before work-up is complete. Patient states that her understanding and is requesting discharge home. Counseled pt/family regarding: lab results, diagnosis, need for follow-up, rad results - Departure Departure Disposition: Home Clinical Impression: Atypical chest pain Condition: Stable Critical Care Time: No Referrals: MAURI CHRISTOPHER, [Primary Care Provider] - Follow up/PCP as directed Instructions: Chest Pain (DC)
--- NOTE | 2022-07-11 22:47 | XRAY ---
Indication: Chest pain. Comparison: May 16, 2022 Portable chest remains inflated and clear. Heart not enlarged. No new/acute findings.
== END 2022-07-11 19:21 | disposition left against medical advice (07) ==
LOC: ED 17:35
DX: R07.89 Other chest pain (principal); I25.10 Atherosclerotic heart disease of native coronary artery without angina pectoris; Z79.02 Long term (current) use of antithrombotics/antiplatelets; Z79.899 Other long term (current) drug therapy; Z72.0 Tobacco use
CPT/HCPCS: 36415; 71045; 80053; 84484; 85025; 93005; 93041; 99284

== ENCOUNTER 2023-10-09 12:47 | Emergency (ER) | payer MEDICARE ==
[2023-10-09 13:01] VITALS: TEMP 97
[2023-10-09 13:09] LABS: Absolute Neutrophil Ct (ANC) 3.57 x10^3/uL (1.56-6.13); BASOPHIL % 0.3 % (0.1-1.2); Basophil (Absolute #) 0.02 x10^3/uL (0.01-0.08); Eosinophil % 3.5 % (0.7-5.8); Eosinophil (Absolute #) 0.22 x10^3/uL (0.04-0.36); Hematocrit 44.1 % (34.1-44.9); Hemoglobin 14.6 g/dL (11.2-15.7); IMMATURE GRAN # 0.02 x10^3u/L (0.001-0.031); IMMATURE GRAN % 0.3 % (0.001-0.429); Lymphocyte (Absolute #) 1.88 x10^3/uL (1.18-3.74); Lymphocytes % 29.8 % (19.3-51.7); Mean Cell Volume 92.1 fL (79.4-94.8); Mean Corpuscular Hemoglobin 30.5 pg (25.6-32.2); Mean Corpuscular Hgb Concent. 33.1 g/dL (32.2-35.5); Mean Platelet Volume 10.9 fL (9.4-12.3); Monocyte (Absolute #) 0.59 x10^3/uL (0.24-0.86); Monocytes % 9.4 % (4.7-12.5); Neutrophil % 56.7 % (34.0-71.1); Platelet Count 212 x10^3/uL (182-369); Red Blood Count 4.79 x10^6/uL (3.93-5.22); Red Cell Distribution Width 13.1 % (11.7-14.4); White Blood Count 6.3 x10^3/uL (3.98-10.04)
[2023-10-09 13:23] LABS: ALBUMIN 4.4 g/dL (3.5-5.0); ANION GAP 12.4 MEQ/L (5-15); BILIRUBIN,TOTAL 0.8 mg/dL (0.2-1.3); Calcium 9.5 mg/dL (8.4-10.2); Creatinine 1 0.7 mg/dL (0.52-1.04); EST GLOMERULAR FILTRATION RATE 94.7 ML/MIN; Potassium 4.4 mmol/L (3.5-5.1); Total Protein 7.1 g/dL (6.3-8.2)
--- NOTE | 2023-10-09 13:26 | ERPHSYRPT ---
- History of Present Illness Time Seen by Provider: 10/09/23 12:48 Patient Subjective Stated Complaint: pt here for chest pain off and on for 4 days now, she states she has been working outside picking up sticks. she is con cerned because she got dizzy x1 today Triage Nursing Assessment: pt alert, resp easy, walked in, skin w/d/p, no edema noted, no cough. Physician History: Patient is here with chest pain. Describes it as a 4 out of 10. Left midsternal. She states it is more a intermittent pressure. States that she has been having palpitations for up to 1 to 2 weeks. Patient does follow with state appellate clerk, Dr. Cabral. She states that she had stents approximately 1 year ago. Pain currently 4 out of 10. She has taken all of her medication as prescribed. No other recent falls or trauma. Patient is taking PO well. Same number of urinations and defecations. The patient has no signs of altered mental status, nuchal rigidity, signs of meningitis. The patient is up-to-date on all vaccinations. Allergies/Adverse Reactions: tetracycline Allergy (Verified 10/09/23 12:48) Home Medications: Acetaminophen 500 mg [Tylenol Extra Strength 500 mg] 1,000 mg PO Q4HPRN PRN 04/14/22 [History] Escitalopram Oxalate [Lexapro] 10 mg PO HS 04/14/22 [History] Ibuprofen 200 mg [Motrin 200 mg] 400 mg PO Q6HPRN PRN 04/14/22 [History] Lorazepam 0.5 mg [Ativan 0.5 MG] 0.5 mg PO DAILY PRN PRN 04/14/22 [History] Lorazepam 1 mg [Ativan 1 MG] 1.5 mg PO HS 04/14/22 [History] Aspirin 81 gm Chew [Baby Aspirin 81 mg Chew] 81 mg PO DAILY 07/11/22 [History] Atorvastatin Calcium 1 ea DAILY 07/11/22 [History] Metoprolol Succinate 50 mg [Toprol Xl 50 MG] 50 mg PO BID 07/11/22 [H istory] Sacubitril/Valsartan [Entresto 24 mg-26 mg Tablet] 1 ea BID 07/11/22 [History] Spironolactone [Aldactone] 12.5 mg PO DAILY 07/11/22 [History] Ticagrelor [Brilinta] 1 puff DAILY 07/11/22 [History] Hx Tetanus, Diphtheria Vaccination/Date Given: No Hx Influenza Vaccination/Date Given: No Hx Pneumococcal Vaccination/Date Given: No Immunizations Up to Date: Yes Travel Risk - International Travel Have you traveled outside of the country in past 3 weeks: No - Emerging Infectious Disease Are you exhibiting symptoms associated with any current EIDs: No - Past Medical History Pertinent Past Medical History: Yes Neurological History: Migraines ENT History: No Pertinent History, Other Cardiac History: Coronary Artery Disease Respiratory History: Asthma, COPD Psycho-Social History: Anxiety, Depression Other Medical History: Vestibular migraines - Past Surgical History Past Surgical History: Yes Cardiac: Cardiac Catheterization, Cardiac Stent Gastrointestinal: Appendectomy - Social History Smoking Status: Former smoker How long have you smoked: "50 years" Exposure to second hand smoke: Yes Drug Use: marijuana Patient Lives Alone: Yes - Social Determinants of Health Will the patient participate in the screening: Yes Do you worry about a steady place to live?: No Do you have any problems with any of the following?: No known problems In the past 12 months,have you had to go without utilities?: No Transportation Issues: No Has anyone in your support network made you feel unsafe?: No Have you or anyone in your house had to go without enough: No - Nursing Vital Signs Nursing Vital Signs: Initial Vital Signs Temperature 97.0 F 10/09/23 13:00 Pulse Rate 79 10/09/23 13:00 Respiratory Rate 18 10/09/23 13:00 Blood Pressure 105/76 10/09/23 13:00 O2 Sat by Pulse Oximetry 98 10/09/23 13:00 Pain Scale Pain Intensity 0 - Physical Exam SpO2 Interpretation: normal SpO2: 98 Comments: 10/09/23 13:25 Review of Systems Constitutional: Negative for fever. HENT: Negative for congestion. Respiratory: Negative for shortness of breath. Cardiovascular: Negative for chest pain. Gastrointestinal: Negative for abdominal pain. Genitourinary: Negative for dysuria. Musculoskeletal: Negative for back pain. Skin: Negative for rash. Neurological: Negative for headaches. Psychiatric/Behavioral: Negative for behavioral problems. All other systems reviewed and are negative. Physical Exam Vitals signs and nursing note reviewed. Constitutional: Appearance: Patient is well-developed. HENT: Head: Normocephalic and atraumatic. Eyes: Conjunctiva/sclera: Conjunctivae normal. Neck: Musculoskeletal: Normal range of motion. Trachea: No tracheal deviation. Cardiovascular: Rate and Rhythm: Normal rate. Pulmonary: Effort: Pulmonary effort is normal. No respiratory distress. Abdominal: Palpations: Abdomen is soft. Musculoskeletal: General: No deformity. Skin: General: Skin is warm and dry. Neurological/ Psychiatric: Mental Status: Mental status, behavior, interaction with environment is appropriate for patient's age and condition - Course Nursing assessment & vital signs reviewed: Yes EKG Interpreted by Me: Sinus Rhythm Ordered Tests: Active Orders 24 hr Category Date Time Status Gym Attendant STAT Care 10/09/23 13:01 Completed EKG-ER Only STAT Care 10/09/23 13:01 Completed EKG-ER Only STAT Care 10/09/23 15:02 Completed IV Insertion STAT Care 10/09/23 13:01 Completed CHEST 1 VIEW (PORTABLE) Stat Exams 10/09/23 13:01 Completed CBC W DIFF Stat Lab 10/09/23 13:00 Completed CK-Creatinine Phosphokinase Stat Lab 10/09/23 13:00 Completed CMP Stat Lab 10/09/23 13:00 Completed LIPASE Stat Lab 10/09/23 13:00 Completed NT PRO BNPII Stat Lab 10/09/23 13:00 Completed TROPONIN Q4H Lab 10/09/23 13:00 Completed TROPONIN Q4H Lab 10/09/23 15:00 Completed TROPONIN Q4H Lab 10/09/23 21:15 Ordered Lab/Rad Data: Laboratory Result Diagrams 10/09/23 13:00 10/09/23 13:00 Laboratory Results 10/09/23 10/09/23 10/09/23 Range/Units 15:00 13:00 13:00 WBC (3.98-10.04) x10^3/uL RBC (3.93-5.22) x10^6/uL Hgb (11.2-15.7) g/dL Hct (34.1-44.9) % MCV (79.4-94.8) fL MCH (25.6-32.2) pg MCHC (32.2-35.5) g/dL RDW (11.7-14.4) % Plt Count (182-369) x10^3/uL MPV (9.4-12.3) fL Gran % (34.0-71.1) % Immature Gran % (Auto) (0.001-0.429) % Nucleat RBC Rel Count (0.00-0.2) % Eos # (Auto) (0.04-0.36) x10^3/uL Immature Gran # (Auto) (0.001-0.031) x10^3u/L Absolute Lymphs (auto) (1.18-3.74) x10^3/uL Absolute Monos (auto) (0.24-0.86) x10^3/uL Absolute Nucleated RBC (0.00-0.012) x10^3u/L Lymphocytes % (19.3-51.7) % Monocytes % (4.7-12.5) % Eosinophils % (0.7-5.8) % Basophils % (0.1-1.2) % Absolute Granulocytes (1.56-6.13) x10^3/uL Basophils # (0.01-0.08) x10^3/uL Sodium 139 (135-145) mmol/L Potassium 4.4 (3.5-5.1) mmol/L Chloride 107 (98-107) mmol/L Carbon Dioxide 23 (22-30) mmol/L Anion Gap 12.4 (5-15) MEQ/L BUN 15 (7-17) mg/dL Creatinine 0.70 (0.52-1.04) mg/dL Estimated GFR 94.7 ML/MIN Glucose 118 H (74-106) mg/dL Calcium 9.5 (8.4-10.2) mg/dL Total Bilirubin 0.80 (0.2-1.3) mg/dL AST 31 (14-36) U/L ALT 27 (0-35) U/L Alkaline Phosphatase 89 (38-126) U/L Creatine Kinase 146 H (30-135) U/L Troponin I < 0.012 < 0.012 (0.000-0.033) ng/mL NT-Pro-B Natriuret Pep 316 (<300) pg/mL Serum Total Protein 7.1 (6.3-8.2) g/dL Albumin 4.4 (3.5-5.0) g/dL Lipase 73 (23-300) U/L 10/09/23 Range/Units 13:00 WBC 6.3 (3.98-10.04) x10^3/uL RBC 4.79 (3.93-5.22) x10^6/uL Hgb 14.6 (11.2-15.7) g/dL Hct 44.1 (34.1-44.9) % MCV 92.1 (79.4-94.8) fL MCH 30.5 (25.6-32.2) pg MCHC 33.1 (32.2-35.5) g/dL RDW 13.1 (11.7-14.4) % Plt Count 212 (182-369) x10^3/uL MPV 10.9 (9.4-12.3) fL Gran % 56.7 (34.0-71.1) % Immature Gran % (Auto) 0.3 (0.001-0.429) % Nucleat RBC Rel Count 0.0 (0.00-0.2) % Eos # (Auto) 0.22 (0.04-0.36) x10^3/uL Immature Gran # (Auto) 0.02 (0.001-0.031) x10^3u/L Absolute Lymphs (auto) 1.88 (1.18-3.74) x10^3/uL Absolute Monos (auto) 0.59 (0.24-0.86) x10^3/uL Absolute Nucleated RBC 0.00 (0.00-0.012) x10^3u/L Lymphocytes % 29.8 (19.3-51.7) % Monocytes % 9.4 (4.7-12.5) % Eosinophils % 3.5 (0.7-5.8) % Basophils % 0.3 (0.1-1.2) % Absolute Granulocytes 3.57 (1.56-6.13) x10^3/uL Basophils # 0.02 (0.01-0.08) x10^3/uL Sodium (135-145) mmol/L Potassium (3.5-5.1) mmol/L Chloride (98-107) mmol/L Carbon Dioxide (22-30) mmol/L Anion Gap (5-15) MEQ/L BUN (7-17) mg/dL Creatinine (0.52-1.04) mg/dL Estimated GFR ML/MIN Glucose (74-106) mg/dL Calcium (8.4-10.2) mg/dL Total Bilirubin (0.2-1.3) mg/dL AST (14-36) U/L ALT (0-35) U/L Alkaline Phosphatase (38-126) U/L Creatine Kinase (30-135) U/L Troponin I (0.000-0.033) ng/mL NT-Pro-B Natriuret Pep (<300) pg/mL Serum Total Protein (6.3-8.2) g/dL Albumin (3.5-5.0) g/dL Lipase (23-300) U/L - Progress Progress: improved Progress Note: 10/09/23 13:26 Differential diagnosis includes: PNA, STEMI, NSTEMI, other infection, musc uloskeletal pain, pneumothorax - We'll obtain basic labs, fluids, EKG, troponin, chest x-ray - EKG shows no ST changes - my read - O2 saturations consistently greater than 95%. - CXR shows no pneumonia, pneumothorax - my read 10/09/23 16:08 Labs did return unremarkable. We did discuss over the phone with on-call state appellate clerk, the patient's personal state appellate clerk, Dr. Jaron Donahue MD. We went over the case in detail. He recommended getting a second troponin and repeating an EKG. Should these return negative he stated patient could go home and follow-up in the office. He did not have any recommendations for medication changes. Patient has 2 negative cardiac troponins over course of observation in the emergency department, 2 unchanged EKGs. Patient's second EKG was sinus rhythm, rate 68, NH interval 140, QRS 77, QTc 432, no other ST changes. Patient is been chest pain-free in the emergency department. She feels comfortable going home and following up. She was instructed to return here sooner for any new or changing symptoms. Counseled pt/family regarding: lab results, diagnosis, need for follow-up, rad results - Departure Departure Disposition: Home Clinical Impression: Atypical chest pain Condition: Stable Critical Care Time: No Referrals: MAURI CHRISTOPHER, [NON-STAFF PHY W/O PRIVILEGES] - Follow up/PCP as directed Instructions: Chest Pain (DC) Additional Instructions: Call Dr. Jaron Donahue MD for close follow up in the next 2-3 days [facility] Jaron Donahue MD [address], [place] [address] [address] Return here sooner for new or changing symptoms
[2023-10-09 13:36] LABS: NT PRO BNPII 316 pg/mL (<300); TROPONIN < 0.012 ng/mL (0.000-0.033)
--- NOTE | 2023-10-09 13:46 | XRAY ---
CLINICAL HISTORY: pain COMPARISON: None. TECHNIQUE: X-ray chest was performed in 1 view: AP projection. FINDINGS: Cardiac size is within normal limits. No major collapse or consolidation. Atelectatic changes seen in left lower zone. Curvilinear Aortic arch calcification noted Normal configuration of the mediastinum. The jenny are normal in size and position. Costophrenic and cardiophrenic angles are clear. The bony thorax is unremarkable. IMPRESSION: No acute cardiopulmonary abnormality detected. No definite evidence of consolidation, cavitation, or pleural effusion. Electronically Signed by: Benita Gallagher MD. (10/09/2023 13:43:15 EDT)
[2023-10-09 15:22] VITALS: BP 106/71; PULSE 67; RESP 17
[2023-10-09 15:51] VITALS: O2SAT 98
== END 2023-10-09 16:00 | disposition home or self-care (01) ==
LOC: ED 12:47
DX: R07.89 Other chest pain (principal); Z79.02 Long term (current) use of antithrombotics/antiplatelets; Z79.899 Other long term (current) drug therapy
CPT/HCPCS: 36000; 36415; 71045; 80053; 82550; 83690; 83880; 84484; 85025; 93005; 93041; 99284